=== PATIENT | male | born 1950 | race Caucasian/White ===

== ENCOUNTER 2022-12-02 23:56 | Outpatient (RCR) | payer MEDICARE, SELFPAY | END 2022-12-28 23:59 | disposition home or self-care (01) | LOC: MM 23:56 | PROVIDERS: PCP Family Medicine; Visit Provider Internal Medicine | DX: Z51.81 Encounter for therapeutic drug level monitoring (principal); Z79.01 Long term (current) use of anticoagulants; I48.91 Unspecified atrial fibrillation ==

== ENCOUNTER 2023-01-03 10:53 | Outpatient (RCR) | payer MEDICARE, SELFPAY | END 2023-01-28 16:57 | disposition home or self-care (01) | LOC: MM 10:53 | PROVIDERS: PCP Internal Medicine; Visit Provider Internal Medicine | DX: Z51.81 Encounter for therapeutic drug level monitoring (principal); Z79.01 Long term (current) use of anticoagulants; I48.91 Unspecified atrial fibrillation | CPT/HCPCS: 85610; G0463 ==

== ENCOUNTER 2023-01-29 09:17 | Outpatient (RCR) | payer MEDICARE, SELFPAY | END 2023-02-28 17:32 | disposition home or self-care (01) | LOC: MM 09:17 | PROVIDERS: Visit Provider Internal Medicine | DX: Z51.81 Encounter for therapeutic drug level monitoring (principal); Z79.01 Long term (current) use of anticoagulants; I48.91 Unspecified atrial fibrillation | CPT/HCPCS: 85610; G0463 ==

== ENCOUNTER 2023-03-01 08:51 | Outpatient (RCR) | payer MEDICARE, SELFPAY | END 2023-03-29 16:49 | disposition home or self-care (01) | LOC: MM 08:51 | PROVIDERS: Visit Provider Internal Medicine | DX: Z51.81 Encounter for therapeutic drug level monitoring (principal); Z79.01 Long term (current) use of anticoagulants; I48.91 Unspecified atrial fibrillation ==

== ENCOUNTER 2023-03-20 11:34 | Outpatient (OUT) | payer MEDICARE, SELFPAY ==
[2023-03-20 12:17] LABS: Basophils Absolute Auto 0.1 10^3/uL (0.0-0.1); Basophils Percent Auto 0.8 % (0.2-2.0); Eosinophils Absolute Auto 0.2 10^3/uL (0.0-0.7); Eosinophils Percent Auto 1.9 % (0.9-7.0); Hematocrit 46.4 % (42.0-54.0); Immature Granulocytes Abs Auto 0.04 10^3/uL (0.00-0.03); Immature Granulocytes Pct Auto 0.5 % (0.0-0.5); Lymphocytes Absolute Auto 1.7 10^3/uL (1.2-3.8); Lymphocytes Percent Auto 21.3 % (20.5-60.0); Mean Corpuscular HGB Conc 32.3 g/dL (29.9-35.2); Mean Corpuscular Hemoglobin 28.8 pg (25.9-34.0); Mean Corpuscular Volume 89.1 fL (80.0-94.0); Mean Platelet Volume 10.3 fL (9.5-13.5); Monocytes Absolute Auto 0.6 10^3/uL (0.3-0.8); Monocytes Percent Auto 7.3 % (1.7-12.0); Neutrophils Absolute Auto 5.4 10^3/uL (1.4-6.5); Neutrophils Percent Auto 68.2 % (43.0-75.0); Platelet Count 233 10^3/uL (150-450); Red Blood Count 5.21 10^6/uL (4.70-6.10); Red Cell Distribution Width 13.7 % (11.0-15.0); White Blood Count 7.8 10^3/uL (4.0-11.0)
[2023-03-20 12:34] LABS: Alanine Aminotransferase 34 U/L (16-63); Albumin Globulin Ratio 0.9; Albumin Level 3.2 g/dL (3.4-5.0); Alkaline Phosphatase 110 U/L (46-116); Anion Gap 11.2; Aspartate Amino Transferase 26 U/L (15-37); BUN Creatinine Ratio 13.9; Bilirubin Total 1.5 mg/dL (0.2-1.0); Carbon Dioxide 27.1 mmol/L (21.0-32.0); Chloride 103 mmol/L (98-107); Chol HDL Ratio 2.6; Cholesterol 104 mg/dL (<=200); Estimated GFR (African America >60 (>=60); Estimated GFR (Non-African Ame >60 (>=60); Globulin 3.6 g/dL; Glucose 102 mg/dL (74-106); HDL Cholesterol 40 mg/dL (40-60); LDL Cholesterol Calculated 41.2 mg/dL; Potassium 4.3 mmol/L (3.5-5.1); Sodium 137 mmol/L (136-145); Total Protein 6.8 g/dL (6.4-8.2); Triglycerides 114 mg/dL (<=150); VLDL CHOLESTEROL 22.8 mg/dL
== END 2023-03-20 11:35 | disposition home or self-care (01) ==
LOC: LAB 11:38
PROVIDERS: PCP Nurse Practitioner Family; Visit Provider Nurse Practitioner Family
DX: I48.91 Unspecified atrial fibrillation (principal); I10 Essential (primary) hypertension
CPT/HCPCS: 36415; 80053; 80061; 85025

== ENCOUNTER 2023-04-01 02:43 | Outpatient (RCR) | payer MEDICARE, SELFPAY | END 2023-04-30 17:41 | disposition home or self-care (01) | LOC: MM 02:43 | PROVIDERS: PCP Nurse Practitioner Family; Visit Provider Internal Medicine | DX: Z51.81 Encounter for therapeutic drug level monitoring (principal); Z79.01 Long term (current) use of anticoagulants; I48.91 Unspecified atrial fibrillation | CPT/HCPCS: 85610; G0463 ==

== ENCOUNTER 2023-05-01 00:39 | Outpatient (RCR) | payer MEDICARE, SELFPAY | END 2023-05-30 16:48 | disposition home or self-care (01) | LOC: MM 00:39 | PROVIDERS: PCP Nurse Practitioner Family; Visit Provider Internal Medicine | DX: Z51.81 Encounter for therapeutic drug level monitoring (principal); Z79.01 Long term (current) use of anticoagulants; I48.91 Unspecified atrial fibrillation | CPT/HCPCS: 85610; G0463 ==

== ENCOUNTER 2023-05-31 09:31 | Outpatient (RCR) | payer MEDICARE, SELFPAY | END 2023-06-28 15:18 | disposition home or self-care (01) | LOC: MM 09:31 | PROVIDERS: PCP Nurse Practitioner Family; Visit Provider Internal Medicine | DX: Z51.81 Encounter for therapeutic drug level monitoring (principal); Z79.01 Long term (current) use of anticoagulants; I48.91 Unspecified atrial fibrillation | CPT/HCPCS: 85610; G0463 ==

== ENCOUNTER 2023-07-01 01:27 | Outpatient (RCR) | payer MEDICARE, SELFPAY | END 2023-07-31 17:04 | disposition home or self-care (01) | LOC: MM 01:27 | PROVIDERS: PCP Nurse Practitioner Family; Visit Provider Internal Medicine | DX: Z51.81 Encounter for therapeutic drug level monitoring (principal); Z79.01 Long term (current) use of anticoagulants; I48.91 Unspecified atrial fibrillation ==

== ENCOUNTER 2023-08-01 01:40 | Outpatient (RCR) | payer MEDICARE, SELFPAY | END 2023-08-29 17:23 | disposition home or self-care (01) | LOC: MM 01:40 | PROVIDERS: PCP Nurse Practitioner Family; Visit Provider Internal Medicine | DX: Z51.81 Encounter for therapeutic drug level monitoring (principal); Z79.01 Long term (current) use of anticoagulants; I48.91 Unspecified atrial fibrillation | CPT/HCPCS: 85610; G0463 ==

== ENCOUNTER 2023-08-30 03:29 | Outpatient (RCR) | payer MEDICARE, SELFPAY | END 2023-09-27 14:10 | disposition home or self-care (01) | LOC: MM 03:29 | PROVIDERS: PCP Nurse Practitioner Family; Visit Provider Internal Medicine | DX: Z51.81 Encounter for therapeutic drug level monitoring (principal); Z79.01 Long term (current) use of anticoagulants; I48.91 Unspecified atrial fibrillation | CPT/HCPCS: 85610; G0463 ==

== ENCOUNTER 2023-09-30 00:24 | Outpatient (RCR) | payer MEDICARE, SELFPAY | END 2023-10-29 18:01 | disposition home or self-care (01) | LOC: MM 00:24 | PROVIDERS: PCP Nurse Practitioner Family; Visit Provider Internal Medicine | DX: Z51.81 Encounter for therapeutic drug level monitoring (principal); Z79.01 Long term (current) use of anticoagulants; I48.91 Unspecified atrial fibrillation | CPT/HCPCS: 85610; G0463 ==

== ENCOUNTER 2023-10-30 04:38 | Outpatient (RCR) | payer MEDICARE, SELFPAY | END 2023-11-29 11:55 | disposition home or self-care (01) | LOC: MM 04:38 | PROVIDERS: PCP Nurse Practitioner Family; Visit Provider Internal Medicine | DX: Z51.81 Encounter for therapeutic drug level monitoring (principal); Z79.01 Long term (current) use of anticoagulants; I48.91 Unspecified atrial fibrillation ==

== ENCOUNTER 2023-11-12 13:38 | Outpatient (OUT) | payer MEDICARE, SELFPAY ==
--- NOTE | 2023-11-12 14:00 | CA_ITS ---
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 DESCRIPTION: COMPLETE ECHOCARDIOGRAM Real-time transthoracic echocardiography with 2D, M-mode, spectral and color flow Doppler performed. QUALITY: Technical quality was fair. 68 , 295#, BSA 2.41 m2, BP 130/72 LEFT VENTRICLE: Normal chamber size. Mild concentric left ventricular hypertrophy. Normal systolic function. LV EF: Normal left ventricular ejection fraction, (55%). DIASTOLIC: Not adequately assessed due to heart rhythm. ATRIAL SEPTUM: LEFT ATRIUM: Moderate dilatation. RIGHT ATRIUM: Moderate dilatation. RIGHT VENTRICLE: Normal chamber size. Normal right ventricular systolic function. TRICUSPID VALVE: Normal mobility and thickness. No stenosis with trivial regurgitation. No evidence of pulmonary hypertension. RVSP 29 mmHg MITRAL VALVE: Mildly thickened with normal mobility. No evidence of mitral valve stenosis. There is no mitral annular calcification. No mitral regurgitation. AORTIC VALVE: Normal trileaflet appearance. No visible sclerosis. Normal leaflet mobility. No evidence of aortic valve stenosis. No aortic regurgitation. AORTIC ROOT: The aortic root is moderately dilated, measuring 4.4 cm. The ascending aortic is mildly dilated measuring 3.7 cm. PULMONIC VALVE: Not well visualized. No stenosis. No regurgitation. PERICARDIUM: No evidence of pericardial effusion. IVC: Collapses with inspirations. IVC is normal in size. PLEURA: CONCLUSION: 1. Mild concentric left ventricular hypertrophy with normal systolic function. LVEF is 55%. 2. Normal right ventricular size and systolic function. 3. No significant valvular dysfunction. 4. Moderate biatrial dilatation. 5. Normal right sided pressures. 6. The aortic root is moderately dilated, measuring 4.4 cm. The ascending aortic is mildly dilated measuring 3.7 cm. Adult Echocardiography Procedure Report Left Ventricle LVEDD (3.7 - 5.6 cm): 5.36 cm, 5.20 cm LVESD (2.2 - 4.0 cm): 4.12 cm LVIVS thickness (0.6 - 1.2 cm): 1.01 cm, 1.09 cm LVPW thickness (0.5 - 1.0 cm): 1.31 cm LVOT Max Gradient: 3.34 mm[Hg] LVOT Area (cm2): 0.91 m/s Peak Velocity (LVOT): 0.91 m/s Mean Velocity (LVOT): 0.56 m/s LVOT Diameter 2.41 cm Left Atrium LA Volume Index (2D A2C): 44.62 ml/m2 Left Atrium Systolic Dimension: 3.93 cm Mitral Valve Mitral Valve E-Wave Peak Velocity: 0.55 m/s Right Ventricle Aorta AO Root Diam: 4.17 cm Ascending Ao Diam: 3.68 cm Aortic Valve AoV Area (Peak Fahad): 4.56 cm2, 4.56 cm2 AoV Area (VTI): 3.74 cm2, 3.74 cm2 Peak Velocity(Antegrade Flow): 0.91 m/s Peak Gradient(Antegrade Flow): 3.32 mm[Hg] Mean Velocity(Antegrade Flow): 0.65 m/s Mean Gradient(Antegrade Flow): 1.87 mm[Hg] Velocity Time Integral: 20.91 cm Tricuspid Valve Peak Velocity (Regurgitant Flow): 2.54 m/s Pulmonic Valve Mean Gradient: 1.86 mm[Hg] Mean Velocity: 0.62 m/s Peak Velocity: 0.97 m/s, 0.82 m/s Peak Gradient: 2.71 mm[Hg], 3.73 mm[Hg] Right Atrium Right Atrium Systolic Pressure: 87.97 ml, 87.97 ml Dictated by: Juan Bauman M.D. on 11/14/2023 at 08:32 Approved by: Juan Bauman M.D. on 11/14/2023 at 08:43
== END 2023-11-12 13:39 | disposition home or self-care (01) ==
LOC: CARD 13:39
PROVIDERS: PCP Nurse Practitioner Family; Visit Provider Nurse Practitioner Family
DX: R94.31 Abnormal electrocardiogram [ECG] [EKG] (principal); I48.0 Paroxysmal atrial fibrillation
CPT/HCPCS: 93306

== ENCOUNTER 2023-12-02 00:31 | Outpatient (RCR) | payer MEDICARE, SELFPAY | END 2023-12-27 10:22 | disposition home or self-care (01) | LOC: MM 00:31 | PROVIDERS: PCP Nurse Practitioner Family; Visit Provider Internal Medicine | DX: Z51.81 Encounter for therapeutic drug level monitoring (principal); Z79.01 Long term (current) use of anticoagulants; I48.91 Unspecified atrial fibrillation | CPT/HCPCS: 85610; G0463 ==

== ENCOUNTER 2023-12-30 00:56 | Outpatient (RCR) | payer MEDICARE, SELFPAY | END 2024-01-29 09:51 | disposition home or self-care (01) | LOC: MM 00:56 | PROVIDERS: PCP Nurse Practitioner Family; Visit Provider Internal Medicine | DX: Z51.81 Encounter for therapeutic drug level monitoring (principal); Z79.01 Long term (current) use of anticoagulants; I48.91 Unspecified atrial fibrillation | CPT/HCPCS: 85610; G0463 ==

== ENCOUNTER 2024-01-30 00:19 | Outpatient (RCR) | payer MEDICARE, SELFPAY | END 2024-02-28 09:50 | disposition home or self-care (01) | LOC: MM 00:19 | PROVIDERS: PCP Nurse Practitioner Family; Visit Provider Internal Medicine | DX: Z51.81 Encounter for therapeutic drug level monitoring (principal); Z79.01 Long term (current) use of anticoagulants; I48.91 Unspecified atrial fibrillation | CPT/HCPCS: 85610; G0463 ==

== ENCOUNTER 2024-03-02 01:27 | Outpatient (RCR) | payer MEDICARE, SELFPAY | END 2024-03-30 23:54 | disposition home or self-care (01) | LOC: MM 01:27 | PROVIDERS: PCP Nurse Practitioner Family; Visit Provider Internal Medicine | DX: Z51.81 Encounter for therapeutic drug level monitoring (principal); Z79.01 Long term (current) use of anticoagulants; I48.91 Unspecified atrial fibrillation | CPT/HCPCS: 85610; G0463 ==

== ENCOUNTER 2024-03-31 02:42 | Outpatient (RCR) | payer MEDICARE, SELFPAY | END 2024-04-30 23:43 | disposition home or self-care (01) | LOC: MM 02:42 | PROVIDERS: PCP Nurse Practitioner Family; Visit Provider Internal Medicine | DX: Z51.81 Encounter for therapeutic drug level monitoring (principal); Z79.01 Long term (current) use of anticoagulants; I48.91 Unspecified atrial fibrillation ==

== ENCOUNTER 2024-05-01 11:59 | Outpatient (RCR) | payer MEDICARE, SELFPAY | END 2024-05-30 23:59 | disposition home or self-care (01) | LOC: MM 11:59 | PROVIDERS: PCP Nurse Practitioner Family; Visit Provider Internal Medicine | DX: Z51.81 Encounter for therapeutic drug level monitoring (principal); Z79.01 Long term (current) use of anticoagulants; I48.91 Unspecified atrial fibrillation | CPT/HCPCS: 85610; G0463 ==

== ENCOUNTER 2024-06-01 04:15 | Outpatient (RCR) | payer MEDICARE, SELFPAY | END 2024-06-30 09:30 | disposition home or self-care (01) | LOC: MM 04:15 | PROVIDERS: PCP Nurse Practitioner Family; Visit Provider Internal Medicine | DX: Z51.81 Encounter for therapeutic drug level monitoring (principal); Z79.01 Long term (current) use of anticoagulants; I48.91 Unspecified atrial fibrillation | CPT/HCPCS: 85610; G0463 ==

== ENCOUNTER 2024-06-30 08:00 | Outpatient (OUT) | payer MEDICARE, SELFPAY ==
--- OUTSIDE RECORDS SUMMARY | 2024-06-30 08:05 | XMS_ITS | CCD ---
Author Organization [facility] CliniSynv Care Team Providers Care Oracle Business Intelligence Developer Name Role Phone UNKNOWN, PROVIDER Unavailable Unavailable UNKNOWN, PROVIDER Unavailable Unavailable HOUSE, MARINO Unavailable Unavailable HOUSE, MARINO Unavailable Unavailable House, Marino Primary Care Unavailable Evelina Sloan Attending Unavailable Oren Garcia Admitting Unavailab Pepe Chung Consulting Unavailable FAWWAD, LEIGH H Attending Unavailable FAWWAD, LEIGH H Admitting Unavailable HOUSE, DR JUSTIN Primary Care Unavailable FAWWAD, LEIGH H Attending Unavailable FAWWAD, LEIGH H Admitting Unavailable HOUSE, DR JUSTIN Primary Care Unavailable FAWWAD, LEIGH H Admitting Unavailable HOUSE, DR JUSTIN Primary Care Unavailable FAWWAD, LEIGH H Consulting Unavailable FAWWAD, LEIGH H Attending Unavailable FAWWAD, LEIGH H Attending Unavailable FAWWAD, LEIGH H Admitting Unavailable HOUSE, DR JUSTIN Primary Care Unavailable FAWWAD, LEIGH H Attending Unavailable FAWWAD, LEIGH H Admitting Unavailable HOUSE, DR JUSTIN Primary Care Unavailable FAWWAD, LEIGH H Attending Unavailable FAWWAD, LEIGH H Admitting Unavailable HOUSE, DR JUSTIN Primary Care Unavailable FAWWAD, LEIGH H Attending Unavailable FAWWAD, LEIGH H Admitting Unavailable HOUSE, DR JUSTIN Primary Care Unavailable FAWWAD, LEIGH H Attending Unavailable FAWWAD, LEIGH H Admitting Unavailable HOUSE, DR JUSTIN Primary Care Unavailable RHONDA ROSENBAUM Attending Unavailable RHONDA ROSENBAUM Admitting Unavailable RHONDA ROSENBAUM Consulting Unavailable HOUSE, DR JUSTIN Primary Care Unavailable HOUSE, DR JUSTIN Consulting Unavailable HOUSE, DR JUSTIN Attending Unavailable HOUSE, DR JUSTIN Admitting Unavailable HOUSE, DR JUSTIN Primary Care Unavailable [facility], DR KEVEN Hart Consulting Unavailable RHONDA ROSENBAUM Attending Unavailable RHONDA ROSENBAUM Admitting Unavailable HOUSE, DR JUSTIN Primary Care Unavailable RHONDA ROSENBAUM Consulting Unavailable RHONDA ROSENBAUM Attending Unavailable RHONDA ROSENBAUM Admitting Unavailable HOUSE, DR JUSTIN Primary Care Unavailable FAWWATammy, LEIGH H Admitting Unavailable HOUSE, DR JUSTIN Primary Care Unavailable FAWWAD, LEIGH H Attending Unavailable FAWWAD, LEIGH H Admitting Unavailable HOUSE, DR JUSTIN Primary Care Unavailable FAWWAD, LEIGH H Attending Unavailable FAWWAD, LEIGH H Attending Unavailable FAWWAD, LEIGH H Admitting Unavailable HOUSE, DR JUSTIN Primary Care Unavailable Rachael Guerrero Unavailable RHONDA ROSENBAUM Attending Unavailable RHONDA ROSENBAUM Attending Unavailable Allergies Allergy Classification Reported Allergen(s) Allergy Type Date of Onset Reaction(s) Facility (1 source) Latex; Translations: [latex] Propensity to adverse reactions (disorder) 6 AOF [facility] Repository (2 sources) Lisinopril; Translations: [LISINOPRIL] Drug Allergy 2 [facility] Repository (3 sources) Lisinopril Drug Allergy anaphylaxis Itugo Other Medications Current Medications Medication Drug Class(es) Dates Sig (Normalized) Sig (Original) [id number] 200 actuat albuterol 0.09 mg/actuat metered dose inhaler (2 sources) beta2-Adrenergic Agonist Start: 03-03-2024 take 1 puff(s) by inhalation every four to six hours Albuterol Sulfate Active 2 PUFF INHALATION EVERY 4-6 HOURS 6.7 March 03, 2024 1:18pm Start: 09-10-2023 End: 03-03-2024 take 1 puff(s) by inhalation every four to six hours Albuterol Sulfate Discontinued 2 PUFF INHALATION EVERY 4-6 HOURS 6.7 September 10, 2023 12:00am March 03, 2024 1:18pm aspirin 81 mg oral tablet (4 sources) Platelet Aggregation Inhibitor, Nonsteroidal Anti-inflammatory Drug Start: 10-29-2021 take 81 mg by mouth once daily Aspirin Active 81 MG PO Daily October 29, 2021 12:00am take 1 tablet by fran th every twenty-four hours Aspirin 81 81 MG 1 tablet Orally Once a day Active doxazosin 4 mg oral tablet (4 sources) alpha-Adrenergic Bill Start: 10-26-2021 take 4 mg by mouth once daily Doxazosin Active 4 MG PO Daily October 26, 2021 12:00am furosemide 20 mg oral tablet (5 sources) Loop Diuretic Start: 08-14-2023 take 40 mg by mouth once daily Furosemide Active 40 MG PO Daily August 14, 2023 11:49am Start: 10-26-2021 End: 08-14-2023 take 20 mg by mouth once daily Furosemide Discontinued 20 MG PO Daily October 26, 2021 12:00am August 14, 2023 11:51am take 1 tablet by fran every twenty-four hours Furosemide 40 MG 1 tablet Orally Once a day Active irbesartan 75 mg oral tablet (4 sources) Angiotensin 2 Receptor Bill Start: 11-15-2022 take 75 mg by mouth once daily Irbesartan Active 75 MG PO Daily November 15, 2022 12:00am Magnesium (3 sources) Magnesium 400 MG as directed Orally Active magnesium oxide 400 mg oral tablet (1 source) Start: 08-14-2023 take 400 mg by mouth once daily Magnesium Oxide Active 400 MG PO Daily August 14, 2023 1:00am mupirocin 0.02 mg/mg topical ointment (1 source) RNA Synthetase Inhibitor Antibacterial Start: 09-10-2023 Mupirocin Active 1 APPLIC TOPICAL Twice daily 19 01September 10, 2023 12:00am omeprazole 20 mg delayed release oral capsule (5 sources) Proton Pump Inhibitor Start: 08-14-2023 take 20 mg by mouth once daily Omeprazole Magnesium Active 20 MG PO Daily August 14, 2023 11:50am Start: 10-29-2021 End: 08-14-2023 take 20 mg by mouth twice daily Omeprazole Magnesium Discontinued 20 MG PO Twice daily October 29, 2021 12:00am August 14, 2023 11:51am take 1 capsule by mo [facility] once daily Omeprazole 20 MG 1 capsule 30 minutes before morning meal Orally Once a day Active warfarin sodium 2.5 mg oral tablet (5 sources) Vitamin K Antagonist Start: 10-30-2021 take 2.5 mg by mouth once daily Warfarin Active 2.5 MG PO Daily October 30, 2021 12:00am CONFIRMED WITH RESHMA WRIGHT 10/30/21 Start: 10-29-2021 End: 10-30-2021 Warfarin Discontinued 5 MG P O Daily October 29, 2021 12:00am October 30, 2021 10:07am 1/2 or 1 tablet as directed Completed/Discontinued Medications Medication Drug Class(es) Dates Sig (Normalized) Sig (Original) amiodarone hydrochloride 200 mg oral tablet (1 source) Antiarrhythmic Start: 10-26-2021 End: 08-14-2023 Amiodarone Discontinued 100 MG PO Every 48 hours October 26, 2021 12:00am August 14, 2023 11:50am amoxicillin 875 mg / clavulanate 125 mg oral tablet (1 source) Penicillin-class Antibacterial Start: 09-10-2023 End: 03-20-2024 take 1 tablet by mouth twice daily Amoxicillin-Pot Clavulanate Discontinued 1 TAB PO Twice daily 19 04September 10, 2023 12:00am March 20, 2024 10:36am atorvastatin 40 mg oral tablet (5 sources) HMG-CoA Reductase Inhibitor Start: 11-15-2022 End: 08-14-2023 Atorvastatin Discontinued MG TABLET November 15, 2022 12:00am August 14, 2023 11:50am Start: 10-26-2021 take 40 mg by mouth once daily Atorvastatin Active 40 MG PO Daily October 26, 2021 12:00am famotidine 40 mg oral tablet (1 source) Histamine-2 Receptor Antagonist Start: 11-15-2022 End: 08-14-2023 take 40 mg by mouth once daily Famotidine Discontinued 40 MG PO Daily November 15, 2022 12:00am August 14, 2023 11:50am lisinopril 10 mg oral tablet (1 source) Angiotensin Converting Enzyme Inhibitor Start: 10-26-2021 End: 10-30-2021 take 10 mg by mouth once daily Lisinopril Discontinued 10 MG PO Daily October 26, 2021 12:00am October 30, 2021 1:36pm metoprolol tartrate 25 mg oral tablet (1 source) beta-Adrenergic Bill Start: 10-26-2021 End: 08-14-2023 take 12.5 mg by mouth twice daily Metoprolol Tartrate Discontinued 12.5 MG PO Twice daily October 26, 2021 12:00am August 14, 2023 11:50am predniSONE 50 mg oral tablet (1 source) Start: 11-15-2022 End: 08-14-2023 take 50 mg by mouth once daily Prednisone Discontinued 50 MG PO Daily 01 04November 15, 2022 12:00am August 14, 2023 11:50am Problems Active Problems Problem Classification Problem Date Documented Date Episodic/Chronic Abdominal pain (4 sources) Unspecified abdominal pain; Translations: [UNSPECIFIED ABDOMINAL PAIN] Onset: 10-02-2022 Episodic Asthma (2 sources) Asthma; Translations: [Unspecified asthma, uncomplicated] 08-14-2023 Chronic Cardiac dysrhythmias (19 sources) Unspecified atrial fibrillation; Translations: [Paroxysmal atrial fibrillation] Onset: 11-22-2017 Chronic Chronic obstructive pulmonary disease and bronchiectasis (2 sources) Chronic obstructive lung disease; Translations: [Chronic obstructive pulmonary disease, unspecified] 08-14-2023 Chronic Coronary atherosclerosis and other heart disease (1 source) Atherosclerotic heart disease of [place] coronary artery without angina pectoris; Translations: [ATHSCL HEART DISEASE OF [place] CORONARY ARTERY W/O ANG PCTRS] Onset: 11-22-2017 Chronic Coronary atherosclerosis and other heart disease (2 sources) Presence of aortocoronary bypass graft; Translations: [PRESENCE OF AORTOCORONARY BYPASS GRAFT] Onset: 11-22-2017 Episodic Disorders of lipid metabolism (2 sources) Hypercholesterolemia; Translations: [Pure hypercholesterolemia, unspecified] 08-14-2023 Chronic Esophageal disorders (7 sources) Gastro-esophageal reflux disease without esophagitis; Translations: [Gastroesophageal reflux disease without esophagitis] Onset: 11-22-2017 Chronic Essential hypertension (7 sources) Essential (primary) hypertension; Translations: [Essential hypertension] Onset: 11-22-2017 Chronic Immunizations and screening for infectious disease (1 source) Encounter for immunization Episodic Other aftercare (2 sources) emt intermediate (current) use of anticoagulants; 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] Onset: 11-22-2017 Episodic Other aftercare (5 sources) Encounter for therapeutic drug level monitoring; Translations: [ENC THERAPEUTC DRUG LEVL MONITORING] Onset: 10-27-2022 Episodic Other and ill-defined heart disease (1 source) Heart disease; Translations: [Heart disease, unspecified] 08-14-2023 Chronic Other and ill-defined heart disease (1 source) Heart disease, unspecified; Translations: [Heart disease, unspecified] 03-20-2024 Chronic Other injuries and conditions due to external causes (1 source) Angioedema; Translations: [Angioneurotic edema, initial encounter] 06-12-2023 Episodic Other injuries and conditions due to external causes (1 source) Angioedema of tongue; Translations: [Angioneurotic edema, initial encounter] 06-12-2023 Episodic Other lower respiratory disease (1 source) Respiratory obstruction; Translations: [Other specified respiratory disorders] 06-12-2023 Episodic Other screening for suspected conditions (not mental disorders or infectious disease) (2 sources) Patient encounter status; Translations: [Encounter for screening for malignant neoplasm of prostate] 03-20-2024 Episodic Other skin disorders (1 source) Eruption; Translations: [Rash and other nonspecific skin eruption] 09-10-2023 Episodic Other upper respiratory infections (1 source) Maxillary sinusitis; Translations: [Chronic maxillary sinusitis] 09-10-2023 Chronic Spondylosis; intervertebral disc disorders; other back problems (1 source) Backache; Translations: [Dorsalgia, unspecified] 09-11-2023 Episodic Unclassified (2 sources) Unknown / UNK(Unknown) Onset: 11-22-2017 Unclassified (1 source) T78.3XXA - Angioneurotic edema, initial encounter; Translations: [T78.3XXA - Angioneurotic edema, initial encounter] Onset: 10-26-2021 Unclassified (2 sources) Other persistent atrial fibrillation; Translations: [Other persistent atrial fibrillation] Onset: 03-26-2024 Past or Other Problems Problem Classification Problem Date Documented Date Episodic/Chronic Other aftercare (1 source) skilled nursing (current) use of aspirin; Translations: [NURSING HOME (CURRENT) USE OF ASPIRIN] Onset: 11-22-2017 Episodic Other lower respiratory disease (1 source) Other specified respiratory disorders; Translations: [J98.8 - Other specified respiratory disorders] Onset: 10-26-2021 Episodic Other skin disorders (1 source) Unspecified skin changes; Translations: [R23.9 - Unspecified skin changes] Onset: 10-26-2021 Episodic Residual codes; unclassified (1 source) Other specified postprocedural states; Translations: [[facility] SPECIFIED POSTPROCEDURAL STATES] Onset: 06-02-2022 Episodic Results Test Name Value Interpretation Reference Range Facility 37on 03-26-2024 37 *Increase lasix to 4 0mg twice daily for 3 days. Can take second dose around 3pm. *We will call you in 1 week to see how you are feeling. Normal [facility] Office Visiton 03-26-2024 Follow-up visit [id number] Doug Mcfarland E 1950 M Date Provider Department Center 03/26/2024 RHONDA ARROYO Family History Problem Relation Age of Onset Heart failure Mother Family Status - Relation Status Age at Mother Level of Service:30078 [place] OFFICE/OUTPATIENT ESTABLISHED MOD MDM 30 MIN Reason for Visit and Comments: Coronary Artery Disease [187] Normal [facility] Office Visiton 09-19-2023 Follow-up visit [id number] Doug Mcfarland E 1950 M Date Provider Department Center 09/19/2023 RHONDA ARROYO Family History Problem Relation Age of Onset Heart failure Mother Family Status - Relation Status Age at Mother Level of Service:29444 [place] OFFICE/OUTPATIENT ESTABLISHED MOD MDM 30 MIN Reason for Visit and Comments: Coronary Artery Disease [187] Atrial Fibrillation [80] Normal [facility] CT ABD/PELVIS WO CONon 10-02 CT ABD/PELVIS WO CON EXAMINATION: CT ABD/PELVIS WO CON HISTORY: Right flank pain for 6 months COMPARISON: CT abdomen pelvis 10/22/2019 TECHNIQUE: Axial, Coronal, and Sagittal images were obtained without and/or with IV contrast as indicated by examination type. Dose reduction techniques were achieved by using automated exposure control and/or adjustment of mA and/or kV according to patient size and/or use of iterative reconstruction technique. FINDINGS: LUNG BASES: No visible pulmonary or pleural disease. LIVER: No enlargement, atrophy, suspicious density, or significant focal lesion. BILIARY: No dilatation or calcification. PANCREAS: No lesion, fluid collection, or abnormal duct dilatation. SPLEEN: No enlargement or focal lesion. ADRENALS: No mass or enlargement. KIDNEYS: No mass, obstruction, or calcification. BOWEL/MESENTERY: Numerous diverticula involving the descending and sigmoid colon without acute inflammatory changes. No visible mass, obstruction, or bowel wall thickening. AORTA/VASCULAR: No aneurysm or dissection. RETROPERITONEUM: No mass or adenopathy. LYMPH NODES: No adenopathy. URINARY BLADDER: No visible focal wall thickening, lesion, or calculus. PELVIC ORGANS: No visible mass. Pelvic organs appropriate for patient age. ABDOMINAL WALL: Lower right anterior abdominal wall scarring, likely from prior surgery. No hernia or mass. BONES: No bony lesion or fracture. OTHER: Negative. IMPRESSION: 1.No abnormal or suspicious findings to account for patient's symptoms. Electronically authenticated by: KEVEN FENTON Date: 2022-10-02 08:59 Normal [facility] ECHOCARDIO M/2D COMPLETEon 0 02-23-2022 ECHOCARDIO M/2D COMPLETE Patient: KYLER MCFARLAND Exam Date: 02/23/2022 : 1950 Gender:M Ordering : RHONDA ROSENBAUM [facility] Admission #: [id number] Family : Order #: [id number] CLICK HERE TO VIEW EXAM ECHOCARDIOGRAM REPORT PROCEDURE: CARDIO PULMONARY ECHOCARDIO M/2D COMP INDICATIONS: Paroxysmal atrial fibrillation COMPARISON: None. DESCRIPTION: COMPLETE ECHOCARDIOGRAM Real-time transthoracic echocardiography with 2D, M-mode, spectral and color flow Doppler performed. QUALITY: Technical quality was limited. LEFT VENTRICLE: Normal chamber size. Thickened septal wall. Left ventricular systolic function is at the lower limits of normal. LV EF: Lower limits of normal left ventricular ejection fraction, (50-55%). DIASTOLIC: Diastolic function is indeterminate. ATRIAL SEPTUM: LEFT ATRIUM: Mild dilatation. RIGHT ATRIUM: Mild dilatation. RIGHT VENTRICLE: Mild dilatation. Normal right ventricular systolic function. TRICUSPID VALVE: Normal mobility and thickness. No stenosis with trivial regurgitation. Mild pulmonary hypertension. RVSP is 35 mmHg MITRAL VALVE: Anterior and posterior mitral valve leaflet prolapse. No evidence of mitral valve stenosis. There is no mitral annular calcification. Trivial mitral regurgitation. AORTIC VALVE: Normal trileaflet appearance. No visible sclerosis. Normal leaflet mobility. No evidence of aortic valve stenosis. No aortic regurgitation. AORTIC ROOT: Mildly dilated. The aortic root and ascending aorta are mildly dilated both measuring 4.2 cm. PULMONIC VALVE: Normal thickness and mobility. No stenosis. No regurgitation. PERICARDIUM: No evidence of pericardial effusion. IVC: Collapses with inspirations. Normal size. PLEURA: CONCLUSION: 1. Left ventricular systolic function is at the lower limits of normal. LVEF is 50 to 55%. 2. The right ventricle is mildly dilated with normal systolic function. 3. Mild biatrial dilatation. 4. The aortic root and ascending aorta are mildly dilated, measuring 4.2 cm. 5. No significant valvular dysfunction. 6. Mildly elevated right-sided pressures. 7. No pericardial effusion. Adult Echocardiography Procedure Report Left Ventricle Left Atrium Mitral Valve Right Ventricle RV Internal Diastolic Dimension: 4.78 cm Aorta Aortic Valve Peak Velocity (Antegrade Flow): 0.89 m/s AoV Area (Peak Fahad): 2.81 cm2, 2.81 cm2 Tricuspid Valve Peak Velocity (Regurgitant Flow): 2.55 m/s, 2.59 m/s, 2.83 m/s Peak Velocity: 0.50 m/s Pulmonic Valve Mean Gradient: 1.63 mm[Hg] Mean Velocity: 0.60 m/s Peak Velocity: 0.82 m/s, 0.82 m/s Peak Gradient: 2.66 mm[Hg], 2.66 mm[Hg] Right Atrium Dictated by: Juan Bauman M.D. on 02/23/2022 at 15:40 Approved by: Juan Bauman M.D. on 02/23/2022 at 15:46 Normal [facility] FREE T4on 02-13-2022 Free T4 [Mass/Vol] 1.05 ng/dL Normal 0.76-1.46 [facility] Comment on above: Performed By: #### FT4 #### [facility] [address] [place] [address] Dr. Vin Rush PROF CHEM 8 (BAS METB)on Anion gap [Moles/Vol] 11.9 mmol/L Normal [facility] Comment on above: Performed By: #### BMP, TSH #### [facility] [address] [place] [address] Dr. Vin Rush Calcium [Mass/Vol] 8.5 mg/dL Normal 8.5-10.1 [facility] Comment on above: Performed By: #### BMP, TSH #### [facility] [address] [address] [address] Vin Rush Chloride [Moles/Vol] 104 mmol/L Normal 98-107 [facility] Comment on above: Performed By: #### BMP, TSH #### [facility] [address] [place] [address] Dr. Vin Rush CO2 [Moles/Vol] 28.0 mmol/L Normal 21.0-32.0 [facility] Comment on above: Performed By: #### BMP, TSH #### [facility] [address] [address] [address] Vin Rush Creatinine [Mass/Vol] 1.12 mg/dL Normal 0.70-1.30 [facility] Comment on above: Performed By: #### BMP, TSH #### [facility] [address] [place] [address] Dr. Vin Rush EGFR-AF SRI LANKAN >60 Normal >=60 [facility] Comment on above: Performed By: #### BMP, TSH #### [facility] [address] [place] [address] Dr. Vin Rush EGFR-NON AF SRI LANKAN >60 Normal >=60 [facility] Comment on above: Performed By: #### BMP, TSH #### [facility] [address] [place] [address] Dr. Vin Rush Glucose [Mass/Vol] 153 mg/dL Critically high 74-106 [facility] Comment on above: Performed By: #### BMP, TSH #### [facility] [address] [place] [address] Dr. Vin Rush Potassium [Moles/Vol] 3.9 mmol/L Normal 3.5-5.1 [facility] Comment on above: Performed By: #### BMP, TSH #### [facility] [address] [place] [address] Dr. Vin Rush Sodium [Moles/Vol] 140 mmol/L Normal 136-145 [facility] Comment on above: Performed By: #### BMP, TSH #### [facility] [address] [place] [address] Dr. Vin Rush Urea nitrogen [Mass/Vol] 16.0 mg/dL Normal 7.0-18.0 [facility] Comment on above: Performed By: #### BMP, TSH #### [facility] [address] [address] [address] Vin Rush Urea nitrogen/Creatin ine [Mass ratio] 14.3 mg/mg Normal [facility] Comment on above: Performed By: #### BMP, TSH #### [facility] [address] [address] [address] Vin Rush TSHon 02-13-2022 TSH 5.875 uIU/mL Critically high 0.358-3.74 0 [facility] Comment on above: Performed By: #### BMP, TSH #### [facility] [address] [address] [address] Vin Rush Basic Metabolic Panelon Calcium [Mass/Vol] 8.3 mg/dL Normal 8.2-10.2 [facility] Comment on above: Performed By: #### GLULS #### Point of Care testing , Chloride [Moles/Vol] 101 mmol/L Normal 95-114 [facility] Comment on above: Performed By: #### GLULS #### Point of Care testing , CO2 [Moles/Vol] 29.6 mmol/L Normal 22.0-30.0 [facility] Comment on above: Performed By: #### GLULS #### Point of Care testing , Creatinine [Mass/Vol] 1.34 mg/dL High 0.64-1.27 [facility] Comment on above: Performed By: #### GLULS #### Point of Care testing , Creatinine Clr Calc Pharmacy 69.47 [facility] Comment on above: Result Comment: PERFORMED BY: [facility] [address] [place] [address] PATHOLOGIST MILLINERY COPYIST SHONDA GANNON M.D. Performed By: #### G LULS #### Point of Care testing , Estimated GFR ( Peri > 60 Normal [facility] Comment on above: Result Comment: GFR estimated reference range: According to KDOQI guidelines, <60 ml/min/1.73m2 is sufficient to diagnose a patient with chronic kidney disease. Performed By: #### G LULS #### Point of Care testing , Estimated GFR (Non- Am 52 Normal [facility] Comment on above: Performed By: #### GLULS #### Point of Care testing , Glucose [Mass/Vol] 83 mg/dL Normal 70-100 [facility] Comment on above: Result Comment: Random Glucose Reference Range is dependent on time and content of last meal. Glucose of more than 200 mg/dL in a nonstressed, ambulatory subject supports the diagnosis of Diabetes Mellitus. ADA recommended reference range Performed By: #### G LULS #### Point of Care testing , Potassium [Moles/Vol] 4.0 mmol/L Normal 3.5-5.1 [facility] Comment on above: Performed By: #### GLULS #### Point of Care testing , Sodium [Moles/Vol] 138 mmol/L Normal 136-146 [facility] Comment on above: Performed By: #### GLULS #### Point of Care testing , Urea nitrogen [Mass/Vol] 23 mg/dL Normal 9-23 [facility] Comment on above: Performed By: #### GLULS #### Point of Care testing , Complete Blood Count Auto Di ffon 10-30-2021 Erythrocyte distribution width (RBC) [Ratio] 14.5 % Normal 12.0-14.8 [facility] Comment on above: Performed By: #### GLULS #### Point of Care testing , Hematocrit (Bld) [Volume fraction] 42.3 % Normal 38.8-50.0 [facility] Comment on above: Performed By: #### GLULS #### Point of Care testing , Hemoglobin (Bld) [Mass/Vol] 14.1 g/dL Normal 13.0-17.0 [facility] Comment on above: Performed By: #### GLULS #### Point of Care testing , MCH (RBC) [Entitic mass] 29.0 pg Normal 27.5-35.2 [facility] Comment on above: Performed By: #### GLULS #### Point of Care testing , MCV (RBC) [Entitic vol] 87.0 fL Normal 83.5-101 [facility] Comment on above: Performed By: #### GLULS #### Point of Care testing , Mean Corpuscular HGB Conc 33.3 g/dL Normal 32.5-35.6 [facility] Comment on above: Performed By: #### GLULS #### Point of Care testing , Nucleated RBC/100 WBC (Bld) [Ratio] 0.4 % Normal 0-0.5 [facility] Comment on above: Result Comment: PERFORMED BY: [facility] [address] [place] [address] PATHOLOGIST MILLINERY COPYIST SHONDA GANNON M.D. Performed By: #### G LULS #### Point of Care testing , Platelet mean volume (Bld) [Entitic vol] 8.4 fL Normal 6.6-10.1 [facility] Comment on above: Performed By: #### GLULS #### Point of Care testing , Platelets (Bld) [#/Vol] 211 10*3/uL Normal 150-450 [facility] Comment on above: Performed By: #### GLULS #### Point of Care testing , RBC (Bld) [#/Vol] 4.86 10*6/uL Normal 3.90-5.60 [facility] Comment on above: Performed By: #### GLULS #### Point of Care testing , WBC (Bld) [#/Vol] 9.7 10*3/uL Normal 4.5-11.0 [facility] Comment on above: Performed By: #### GLULS #### Point of Care testing , Diff and CBCon 10-30-2021 Eosinophils/100 WBC (Bld) 2 % Normal 1-3 [facility] Comment on above: Performed By: #### GLULS #### Point of Care testing , Lymphocytes/100 WBC (Bld) 23 % Normal 18-42 [facility] Comment on above: Performed By: #### GLULS #### Point of Care testing , Metamyelocytes 3 % High 0-0 [facility] Comment on above: Performed By: #### GLULS #### Point of Care testing , Monocytes/100 WBC (Bld) 9 % Normal 2-11 [facility] Comment on above: Performed By: #### GLULS #### Point of Care testing , Platelet Estimate Normal Normal Normal [facility] Comment on above: Performed By: #### GLULS #### Point of Care testing , Platelet Morphology Normal Normal Normal [facility] Comment on above: Result Comment: PERFORMED BY: [address] [place] [address] PATHOLOGIST MILLINERY COPYIST SHONDA GANNON M.D. Performed By: #### G LULS #### Point of Care testing , RBC morphology finding Nom (Bld) Normal Normal [facility] Comment on above: Performed By: #### GLULS #### Point of Care testing , Segmented neutrophils/100 WBC (Bld) 63 % Normal 50-70 [facility] Comment on above: Performed By: #### GLULS #### Point of Care testing , Prothrombin Time INRon 10-30 INR Coag (PPP) [Relative time] 1.4 {INR} Normal [facility] Comment on above: Result Comment: INR Therapeutic Range A) Pre- and Peroperative OAT started two weeks before surgery. NOT HIP SURGERY: 1.5 - 2.5 HIP SURGERY: 2 - 3 B) Primary and secondary prevention of venous THROMBOSIS: 2 - 3 C) Active venous thrombosis, pulmonary embolism and prevention of recurrent venous thrombosis: 2 - 3 D) Prevention of arterial thromboembolism including patients with mechanical heart valves: 3 - 4.5 PERFORMED BY: [facility] [address] [place] [id number] PATHOLOGIST MILLINERY COPYIST SHONDA GANNON M.D. Performed By: #### G LULS #### Point of Care testing , PT Coag (PPP) [Time] 15.5 s High 9.0-12.9 [facility] Comment on above: Performed By: #### GLULS #### Point of Care testing , Prothrombin Time INRon 10-29 INR Coag (PPP) [Relative time] 1.4 {INR} Normal [facility] Comment on above: Order Comment: Comment NOW PLEASE Result Comment: INR Therapeutic Range A) Pre- and Peroperative OAT started two weeks before surgery. NOT HIP SURGERY: 1.5 - 2.5 HIP SURGERY: 2 - 3 B) Primary and secondary prevention of venous THROMBOSIS: 2 - 3 C) Active venous thrombosis, pulmonary embolism and prevention of recurrent venous thrombosis: 2 - 3 D) Prevention of arterial thromboembolism including patients with mechanical heart valves: 3 - 4.5 PERFORMED BY: [facility] [place] [address] PATHOLOGIST MILLINERY COPYIST SHONDA GANNON M.D. Performed By: #### A BG #### Point of Care testing , PT Coag (PPP) [Time] 15.9 s High 9.0-12.9 [facility] Comment on above: Order Comment: Comment NOW PLEASE Performed By: #### A BG #### Point of Care testing , Arterial Blood Gason 022 ABG Base Excess 1.5 mmol/L Normal -3.0-3.0 [facility] Comment on above: Performed By: #### ABG #### Point of Care testing , ABG Frac Inspired O2 30 % [facility] Comment on above: Performed By: #### ABG #### Point of Care testing , ABG Oxygen Content 8.0 mmol/L Normal 6.6-9.7 [facility] Comment on above: Performed By: #### ABG #### Point of Care testing , ABG Oxygen Saturation 98.3 % Normal 95.0-100.0 [facility] Comment on above: Performed By: #### ABG #### Point of Care testing , ABG PCO2 40.7 mm[Hg] Normal 35.0-45.0 [facility] Comment on above: Performed By: #### ABG #### Point of Care testing , ABG PEEP 5 [facility] Comment on above: Performed By: #### ABG #### Point of Care testing , ABG PH 7.42 Normal 7.35-7.45 [facility] Comment on above: Performed By: #### ABG #### Point of Care testing , ABG PO2 94.7 mm[Hg] Normal 80.0-100.0 [facility] Comment on above: Performed By: #### ABG #### Point of Care testing , ABG TV 500 mL [facility] Comment on above: Performed By: #### ABG #### Point of Care testing , CO2 [Moles/Vol] 27.2 mmol/L High 23.0-27.0 [facility] Comment on above: Performed By: #### ABG #### Point of Care testing , HCO3 (Bld) [Moles/Vol] 26.0 mmol/L Normal 23.0-29.0 [facility] Comment on above: Performed By: #### ABG #### Point of Care testing , Respiratory Critical [facility] Comment on above: Result Comment: Critical Value called on : 10/27/2021 at 04:57 PERFORMED BY: [facility] [address] [place] [address] PATHOLOGIST MILLINERY COPYIST SHONDA GANNON M.D. Performed By: #### A BG #### Point of Care testing , Set Respiratory Rate 12 [facility] Comment on above: Performed By: #### ABG #### Point of Care testing , VBG Draw Site Right Radial [facility] Comment on above: Performed By: #### ABG #### Point of Care testing , Ventilator Mode AC [facility] Comment on above: Performed By: #### ABG #### Point of Care testing , Basic Metabolic Panelon 09-30 Calcium [Mass/Vol] 8.5 mg/dL Normal 8.2-10.2 [facility] Comment on above: Performed By: #### ABG #### Point of Care testing , Chloride [Moles/Vol] 101 mmol/L Normal 95-114 [facility] Comment on above: Performed By: #### ABG #### Point of Care testing , CO2 [Moles/Vol] 24.2 mmol/L Normal 22.0-30.0 [facility] Comment on above: Performed By: #### ABG #### Point of Care testing , Creatinine [Mass/Vol] 1.04 mg/dL Normal 0.64-1.27 [facility] Comment on above: Performed By: #### ABG #### Point of Care testing , Creatinine Clr Calc Pharmacy 88.67 [facility] Comment on above: Result Comment: PERFORMED BY: [facility] [place] [address] PATHOLOGIST MILLINERY COPYIST SHONDA GANNON M.D. Performed By: #### A BG #### Point of Care testing , Estimated GFR ( Peri > 60 [facility] Comment on above: Result Comment: GFR estimated reference range: According to KDOQI guidelines, <60 ml/min/1.73m2 is sufficient to diagnose a patient with chronic kidney disease. Performed By: #### A BG #### Point of Care testing , Estimated GFR (Non- Am > 60 [facility] Comment on above: Performed By: #### ABG #### Point of Care testing , Glucose [Mass/Vol] 150 mg/dL High 70-100 [facility] Comment on above: Result Comment: Random Glucose Reference Range is dependent on time and content of last meal. Glucose of more than 200 mg/dL in a nonstressed, ambulatory subject supports the diagnosis of Diabetes Mellitus. ADA recommended reference range Performed By: #### A BG #### Point of Care testing , Potassium [Moles/Vol] 4.3 mmol/L Normal 3.5-5.1 [facility] Comment on above: Performed By: #### ABG #### Point of Care testing , Sodium [Moles/Vol] 136 mmol/L Normal 136-146 [facility] Comment on above: Performed By: #### ABG #### Point of Care testing , Urea nitrogen [Mass/Vol] 15 mg/dL Normal 9-23 [facility] Comment on above: Performed By: #### ABG #### Point of Care testing , Glucose Poct Glucometerson 0 10-27-2021 Commemt1 Glu2: Cleaned Meter [facility] Comment on above: Result Comment: PERFORMED BY: [address] [place] [address] PATHOLOGIST MILLINERY COPYIST SHONDA GANNON M.D. Performed By: #### G LULS #### Point of Care testing , Glucose [Mass/Vol] 145 mg/dL [facility] Comment on above: Result Comment: Random Glucose Reference Range is dependent on time and content of last meal. Glucose of more than 200 mg/dL in a nonstressed, ambulatory subject supports the diagnosis of Diabetes Mellitus. Performed By: #### G LULS #### Point of Care testing , Commemt1 Glu2: Cleaned Meter [facility] Comment on above: Result Comment: PERFORMED BY: [address] [place] [address] PATHOLOGIST MILLINERY COPYIST SHONDA GANNON M.D. Performed By: #### A BG #### Point of Care testing , Glucose [Mass/Vol] 148 mg/dL [facility] Comment on above: Result Comment: Random Glucose Reference Range is dependent on time and content of last meal. Glucose of more than 200 mg/dL in a nonstressed, ambulatory subject supports the diagnosis of Diabetes Mellitus. Performed By: #### A BG #### Point of Care testing , Commemt1 Glu2: Cleaned Meter [facility] Comment on above: Result Comment: PERFORMED BY: [address] [place] [id number] PATHOLOGIST MILLINERY COPYIST SHONDA GANNON M.D. Performed By: #### G LULS #### Point of Care testing , Glucose [Mass/Vol] 145 mg/dL [facility] Comment on above: Result Comment: Random Glucose Reference Range is dependent on time and content of last meal. Glucose of more than 200 mg/dL in a nonstressed, ambulatory subject supports the diagnosis of Diabetes Mellitus. Performed By: #### G LULS #### Point of Care testing , Commemt1 Glu2: Cleaned Meter [facility] Comment on above: Result Comment: PERFORMED BY: [place] [id number] PATHOLOGIST MILLINERY COPYIST SHONDA GANNON M.D. Performed By: #### G LULS #### Point of Care testing , Glucose [Mass/Vol] 130 mg/dL [facility] Comment on above: Result Comment: Random Glucose Reference Range is dependent on time and content of last meal. Glucose of more than 200 mg/dL in a nonstressed, ambulatory subject supports the diagnosis of Diabetes Mellitus. Performed By: #### G LULS #### Point of Care testing , XR chest 1V portableon 10-27 XR chest 1V portable [facility] Main [place] [address] [place] [address] XRay Report Signed Patient: Kyler Mcfarland MR#: [id number] : 1950 Acct:[id number] Age/Sex: 71 / M ADM Date: 10/26/21 Loc: Room: [address] [place] [address] Type: ADM IN Attending Dr: Yue Fleming MD Ordering Provider: Eleni Floyd APRN, [facility] Date of Service: 10/27/21 XR/XR chest 1V portable: respiratory failure Copies to: Eleni Floyd APRN [facility] Yue Fleming MD PORTABLE AP SEMIERECT CHEST 0606 hours CLINICAL HISTORY: Respiratory failure on ventilator COMPARISON: 10/26/2021 Median sternotomy wires are present. Tubes and lines are unchanged from the comparison. The cardiac and mediastinal contours are stable. Minor parenchymal changes are again seen. There is no new consolidation. Pleural effusion is not excluded without a lateral view. No pneumothorax is noted. Multiple old right rib fractures are present. There is also degenerative change at the spine. XR/XR chest 1V portable IMPRESSION: CHRONIC CHANGES. NO ACUTE FINDINGS. Impression dictated by: Joan Mccabe M.D.10/27/2021 7:22 AM Dictation Location: [place] [address] Transcribed By: [facility] 10/27/21721 Dictated By: Joan Mccabe MD 10/27/21719 Signed By: 10/27/21721 [facility] ABO/Rh Retypeon 10-26-2021 ABO/RH Recheck Result Positive [facility] Comment on above: Result Comment: PERFORMED BY: [place] [address] PATHOLOGIST MILLINERY COPYIST SHONDA GANNON M.D. Arterial Blood Gason 022 ABG Base Excess 0.0 mmol/L Normal -3.0-3.0 [facility] Comment on above: Performed By: #### ABG #### Point of Care testing , ABG Frac Inspired O2 40 % [facility] Comment on above: Performed By: #### ABG #### Point of Care testing , ABG Oxygen Content 8.9 mmol/L Normal 6.6-9.7 [facility] Comment on above: Performed By: #### ABG #### Point of Care testing , ABG Oxygen Saturation 99.1 % Normal 95.0-100.0 [facility] Comment on above: Performed By: #### ABG #### Point of Care testing , ABG PCO2 34.9 mm[Hg] Low 35.0-45.0 [facility] Comment on above: Performed By: #### ABG #### Point of Care testing , ABG PEEP 5 [facility] Comment on above: Performed By: #### ABG #### Point of Care testing , ABG PH 7.45 Normal 7.35-7.45 [facility] Comment on above: Performed By: #### ABG #### Point of Care testing , ABG PO2 135.5 mm[Hg] Off scale high 80.0-100.0 [facility] Comment on above: Performed By: #### ABG #### Point of Care testing , ABG TV 550 mL [facility] Comment on above: Performed By: #### ABG #### Point of Care testing , CO2 [Moles/Vol] 24.6 mmol/L Normal 23.0-27.0 [facility] Comment on above: Performed By: #### ABG #### Point of Care testing , HCO3 (Bld) [Moles/Vol] 23.5 mmol/L Normal 23.0-29.0 [facility] Comment on above: Performed By: #### ABG #### Point of Care testing , Respiratory Critical [facility] Comment on above: Result Comment: Critical Value called on : 10/26/2021 at 09:40 PERFORMED BY: [facility] [address] [place] [address] PATHOLOGIST MILLINERY COPYIST SHONDA GANNON M.D. Performed By: #### A BG #### Point of Care testing , Set Respiratory Rate 14 Normal [facility] Comment on above: Performed By: #### ABG #### Point of Care testing , VBG Draw Site Left Brachial Normal [facility] Comment on above: Performed By: #### ABG #### Point of Care testing , Ventilator Mode AC [facility] Comment on above: Performed By: #### ABG #### Point of Care testing , B-Type Natriuretic Peptideon 10-26-2021 Natriuretic peptide B (Bld) [Mass/Vol] 127.0 pg/mL High 5-100 [facility] Comment on above: Order Comment: Comment Add on to previou s lab draw Result Comment: PERF ORMED BY: [facility] [address] [place] [address] PATHOLOGIST MILLINERY COPYIST SHONDA GANNON M.D. Performed By: #### A BG #### Point of Care testing , COVID-19 Antigenon 2 COVID-19 Antigen Healthcare Worker?: N Reference Range: Negative Negative results, from patients with symptom onset beyond five days, should be treated as presumptive and confirmation with a molecular assay, if necessary, for patient management, may be performed. Negative results do not rule out COVID-19 and should not be used as the sole basis for treatment or patient management decisions, including infection control decisions. Negative results should be considered in the context of a patient's recent exposures, history and the presence of clinical signs and symptoms consistent with COVID-19. The Candy SARS Antigen SIRENA does not differentiate between SARS-CoV and SARS-CoV-2. This test was developed and its performance characteristic determined by [employer] and validated at [facility]. This test has not been FDA cleared or approved. This test has been authorized by FDA under an Emergency Use Authorization (EUA). This test has been validated in accordance with the FDA's Guidance Document (Policy for Diagnostics Testing in Laboratories Certified to Perform High Complexity Testing under CLIA prior to Emergency Use Authorization for Coronavirus Disease-2019 during the Public Health Emergency) issued on October 01, 2019. This test is only authorized for the duration of time the declaration that circumstances exist justifying the authorization of the emergency use of in vitro diagnostic tests for detection of SARS-CoV-2 virus and/or diagnosis of COVID-19 infection under section 564(b)(1) of the Act, 21 U.S.C. 360bbb-3(b)(1), unless the authorization is terminated or revoked sooner. SARS-CoV+SARS-CoV-2 (COVID-19) Ag [Presence] in Respiratory specimen by Rapid immunoassay Negative for SARS Antigen by SIRENA PERFORMED BY: [address] [address] PATHOLOGIST MILLINERY COPYIST SHONDA GANNON M.D. Normal [facility] Comment on above: Performed By: #### GLULS #### Point of Care testing , COVID-19 [facility] 10-26-2021 SARS-CoV-2 (COVID-19) RNA IVÁN+probe Ql (Unsp spec) Negative Normal Negative [facility] Comment on above: Order Comment: Healthcare Worker?: N Result Comment: Testing for SARS-CoV-2 by RT-PCR This test was developed and its performance characteristics determined by [email or web address]) and validated at the [facility]. This test has not been FDA cleared or approved. This test has been authorized by FDA under an Emergency Use Authorization (EUA). This test has been validated in accordance with the FDA's Guidance Document (Policy for Diagnostics Testing in Laboratories Certified to Perform High Complexity Testing under CLIA prior to Emergency Use Authorization for Coronavirus Disease-2019 during the Public Health Emergency) issued on October 01, 2019. This test is only authorized for the duration of time the declaration that circumstances exist justifying the authorization of the emergency use of in vitro diagnostic tests for detection of SARS-CoV-2 virus and/or diagnosis of COVID-19 infection under section 564(b)(1) of the Act, 21 U.S.C. 360bbb-3(b)(1), unless the authorization is terminated or revoked sooner. PERFORMED BY: [place] [address] PATHOLOGIST MILLINERY COPYIST SHONDA GANNON M.D. Performed By: #### G LULS #### Point of Care testing , Complete Blood Count Auto Di ffon 10-26-2021 Basophils (Bld) [#/Vol] 0.1 10*3/uL Normal 0.0-0.2 [facility] Comment on above: Result Comment: PERFORMED BY: [place] [address] PATHOLOGIST MILLINERY COPYIST SHONDA GANNON M.D. Performed By: #### C BC, CMP #### [address] Basophils/100 WBC (Bld) 0.7 % Normal . [facility] Comment on above: Performed By: #### CBC, CMP #### [address] Eosinophils (Bld) [#/Vol] 0.1 10*3/uL Normal 0.0-0.45 [facility] Comment on above: Performed By: #### CBC, CMP #### [address] Eosinophils/100 WBC (Bld) 0.7 % Normal . [facility] Comment on above: Performed By: #### CBC, CMP #### [address] Erythrocyte distribution width (RBC) [Ratio] 14.2 % Normal 12.0-14.8 [facility] Comment on above: Performed By: #### CBC, CMP #### [address] Hematocrit (Bld) [Volume fraction] 40.6 % Normal 38.8-50.0 [facility] Comment on above: Performed By: #### CBC, CMP #### [facility] [address] Hemoglobin (Bld) [Mass/Vol] 13.5 g/dL Normal 13.0-17.0 [facility] Comment on above: Performed By: #### CBC, CMP #### [facility] [address] Lymphocytes (Bld) [#/Vol] 1.1 10*3/uL Normal 1.00-4.8 [facility] Comment on above: Performed By: #### CBC, CMP #### [address] Lymphocytes/100 WBC (Bld) 11.5 % Normal . [facility] Comment on above: Performed By: #### CBC, CMP #### [address] MCH (RBC) [Entitic mass] 29.6 pg Normal 27.5-35.2 [facility] Comment on above: Performed By: #### CBC, CMP #### [address] MCV (RBC) [Entitic vol] 89.1 fL Normal 83.5-101 [facility] Comment on above: Performed By: #### CBC, CMP #### [address] Mean Corpuscular HGB Conc 33.3 g/dL Normal 32.5-35.6 [facility] Comment on above: Performed By: #### CBC, CMP #### [address] Monocytes (Bld) [#/Vol] 0.2 10*3/uL Normal 0.0-0.8 [facility] Comment on above: Performed By: #### CBC, CMP #### [address] Monocytes/100 WBC (Bld) 2.4 % Normal . [facility] Comment on above: Performed By: #### CBC, CMP #### [facility] [address] [place] [address] [place] Neutrophils (Bld) [#/Vol] 8.2 10*3/uL High 1.8-7.7 [facility] Comment on above: Performed By: #### CBC, CMP #### [facility] [address] [place] [id number] [place] Neutrophils/100 WBC (Bld) 84.7 % Normal . [facility] Comment on above: Performed By: #### CBC, CMP #### [facility] [address] [place] [id number] [place] Nucleated RBC/100 WBC (Bld) [Ratio] 0.1 % Normal 0-0.5 [facility] Comment on above: Performed By: #### CBC, CMP #### [facility] [address] Platelet mean volume (Bld) [Entitic vol] 8.6 fL Normal 6.6-10.1 [facility] Comment on above: Performed By: #### CBC, CMP #### [facility] [address] [place] [address] [place] Platelets (Bld) [#/Vol] 241 10*3/uL Normal 150-450 [facility] Comment on above: Performed By: #### CBC, CMP #### [facility] [address] [place] [id number] [place] RBC (Bld) [#/Vol] 4.56 10*6/uL Normal 3.90-5.60 [facility] Comment on above: Performed By: #### CBC, CMP #### [facility] [address] [place] [id number] [place] WBC (Bld) [#/Vol] 9.7 10*3/uL Normal 4.5-11.0 [facility] Comment on above: Performed By: #### CBC, CMP #### [facility] [address] Comprehensive Metabolic Pane fariba 10-26-2021 Albumin [Mass/Vol] 3.1 g/dL Low 3.2-5.5 [facility] Comment on above: Performed By: #### CBC, CMP #### [facility] [address] [place] [address] Albumin/Globulin [Mass ratio] 1.1 {ratio} Normal [facility] Comment on above: Performed By: #### CBC, CMP #### [facility] [address] ALP [Catalytic activity/Vol] 63 U/L Normal 32-92 [facility] Comment on above: Performed By: #### CBC, CMP #### [facility] [address] [place] [address] ALT [Catalytic activity/Vol] 21 U/L Normal 10-60 [facility] Comment on above: Performed By: #### CBC, CMP #### [address] AST [Catalytic activity/Vol] 28 U/L Normal 10-42 [facility] Comment on above: Performed By: #### CBC, CMP #### [address] Bilirubin [Mass/Vol] 1.0 mg/dL Normal 0.3-1.2 [facility] Comment on above: Performed By: #### CBC, CMP #### [address] Calcium [Mass/Vol] 8.2 mg/dL Normal 8.2-10.2 [facility] Comment on above: Performed By: #### CBC, CMP #### [facility] [address] [place] [address] [place] Chloride [Moles/Vol] 101 mmol/L Normal 95-114 [facility] Comment on above: Performed By: #### CBC, CMP #### [facility] [address] [place] [address] [place] CO2 [Moles/Vol] 23.4 mmol/L Normal 22.0-30.0 [facility] Comment on above: Performed By: #### CBC, CMP #### [facility] [address] [place] [address] [place] Creatinine [Mass/Vol] 1.38 mg/dL High 0.64-1.27 [facility] Comment on above: Performed By: #### CBC, CMP #### [address] Creatinine Clr Calc Pharmacy 65.76 [facility] Comment on above: Result Comment: PERFORMED BY: [place] [address] PATHOLOGIST MILLINERY COPYIST SHONDA GANNON M.D. Performed By: #### C BC, CMP #### [address] Estimated GFR ( Peri > 60 [facility] Comment on above: Result Comment: GFR estimated reference range: According to KDOQI guidelines, <60 ml/min/1.73m2 is sufficient to diagnose a patient with chronic kidney disease. Performed By: #### C BC, CMP #### [address] Estimated GFR (Non- Am 51 [facility] Comment on above: Performed By: #### CBC, CMP #### [address] Globulin (S) [Mass/Vol] 2.7 g/dL [facility] Comment on above: Performed By: #### CBC, CMP #### [address] Glucose [Mass/Vol] 231 mg/dL High 70-100 [facility] Comment on above: Result Comment: Random Glucose Reference Range is dependent on time and content of last meal. Glucose of more than 200 mg/dL in a nonstressed, ambulatory subject supports the diagnosis of Diabetes Mellitus. ADA recommended reference range Performed By: #### C BC, CMP #### [address] Potassium [Moles/Vol] 3.5 mmol/L Normal 3.5-5.1 [facility] Comment on above: Performed By: #### CBC, CMP #### [place] [address] [place] Protein [Mass/Vol] 5.8 g/dL Low 6.1-7.9 [facility] Comment on above: Performed By: #### CBC, CMP #### [facility] [address] Sodium [Moles/Vol] 136 mmol/L Normal 136-146 [facility] Comment on above: Performed By: #### CBC, CMP #### [facility] [address] Urea nitrogen [Mass/Vol] 18 mg/dL Normal 9-23 [facility] Comment on above: Performed By: #### CBC, CMP #### [facility] [address] ECG 12 lead ECGon 10-26-2021 ECG 12 lead ECG [facility] Main [place] [address] [place] [address] Electrocardiograph Report Signed Patient: Kyler Mcfarland MR#: [id number] 786 : 1950 Acct:[id number] Age/Sex: 71 / M ADM Date: 10/26/21 Loc: Room: [address] [place] [address] Type: DIS IN Attending Dr: Evelina Sloan MD Ordering Provider: Yue Fleming MD Date of Service: 10/26/21 ECG/ECG 12 lead ECG: pt evalulation Copies to: Test Reason : Blood Pressure : / mmHG Vent. Rate : 051 BPM Atrial Rate : 051 BPM P-R Int : 274 ms QRS Dur : 098 ms QT Int : 502 ms P-R-T Axes : 088 064 095 degrees QTc Int : 462 ms Sinus bradycardia with 1st degree AV block Low voltage QRS Septal infarct (cited on or before 26-OCT-2021) Abnormal ECG When compared with ECG of 26-OCT-2021 04:27, Sinus rhythm has replaced Junctional rhythm Vent. rate has decreased BY 36 BPM Confirmed by ROSHAN CANAS MD ([id number]) on 10/27/2021 3:43:48 PM Referred By: Electronically Signed By:ROSHAN CANAS MD Transcribed By: MUS Signed By Roshan Canas MD 0 10/27/21 1543 [facility] ECG 12 lead ECG [facility] Main [place] [address] [place] [address] Electrocardiograph Report Signed Patient: Kyler Mcfarland MR#: [id number] 786 : 1950 Acct:[id number] Age/Sex: 71 / M ADM Date: 10/26/21 Loc: Room: [address] [place] [address] Type: DIS IN Attending Dr: Evelina Sloan MD Ordering Provider: Jcarlos Mirza DO Date of Service: 10/26/21 ECG/ECG 12 lead ECG: Shortness of Breath/Dyspnea Copies to: Test Reason : Blood Pressure : / mmHG Vent. Rate : 087 BPM Atrial Rate : 086 BPM P-R Int : 000 ms QRS Dur : 094 ms QT Int : 382 ms P-R-T Axes : 000 069 104 degrees QTc Int : 459 ms Accelerated Junctional rhythm Low voltage QRS Septal infarct , age undetermined Marked ST abnormality, possible inferior subendocardial injury Abnormal ECG No previous ECGs available Confirmed by Jcarlos Mirza DO ([id number]) on 10/26/2021 7:00:06 AM Referred By: Electronically Signed By:Jcarlos Mirza DO Transcribed By: MUS Signed By Jcarlos Mirza DO 10/26 0700 [facility] Fresh Frozen Plasmaon 2021 Fresh Frozen Plasma TRANSFUSED 10/26/21 2349 [facility] Glucose Poct Glucometerson 0 10-26-2021 Commemt1 Glu2: Cleaned Meter [facility] Comment on above: Result Comment: PERFORMED BY: [place] [address] PATHOLOGIST MILLINERY COPYIST SHONDA GANNON M.D. Performed By: #### G YAHAIRA #### Point of Care testing , Glucose [Mass/Vol] 136 mg/dL [facility] Comment on above: Result Comment: Random Glucose Reference Range is dependent on time and content of last meal. Glucose of more than 200 mg/dL in a nonstressed, ambulatory subject supports the diagnosis of Diabetes Mellitus. Performed By: #### G LULS #### Point of Care testing , Commemt1 Glu2: Cleaned Meter Normal [facility] Comment on above: Result Comment: PERFORMED BY: [facility] [address] [place] [address] PATHOLOGIST MILLINERY COPYIST SHONDA GANNON M.D. Performed By: #### G LULS #### Point of Care testing , Glucose [Mass/Vol] 131 mg/dL Normal [facility] Comment on above: Result Comment: Random Glucose Reference Range is dependent on time and content of last meal. Glucose of more than 200 mg/dL in a nonstressed, ambulatory subject supports the diagnosis of Diabetes Mellitus. Performed By: #### G LULS #### Point of Care testing , Partial Thromboplastin Timeo n 10-26-2021 aPTT Coag (Bld) [Time] 35.5 s Normal 25.1-36.5 [facility] Comment on above: Result Comment: PERFORMED BY: [facility] [address] [facility] [place] [address] PATHOLOGIST MILLINERY COPYIST SHONDA GANNON M.D. Performed By: #### G LULS #### Point of Care testing , Prothrombin Time INRon 10-26 INR Coag (PPP) [Relative time] 1.8 {INR} [facility] Comment on above: Result Comment: INR Therapeutic Range A) Pre- and Peroperative OAT started two weeks before surgery. NOT HIP SURGERY: 1.5 - 2.5 HIP SURGERY: 2 - 3 B) Primary and secondary prevention of venous THROMBOSIS: 2 - 3 C) Active venous thrombosis, pulmonary embolism and prevention of recurrent venous thrombosis: 2 - 3 D) Prevention of arterial thromboembolism including patients with mechanical heart valves: 3 - 4.5 Performed By: #### G LULS #### Point of Care testing , PT Coag (PPP) [Time] 20.1 s High 9.0-12.9 [facility] Comment on above: Performed By: #### GLULS #### Point of Care testing , Candy Ag Negativeon 10-27-19 Candy Ag Negative Negative Normal Negative [facility] Comment on above: Result Comment: This is a duplicate Ana a SARS Antigen (SIRENA) result to be used for statistical tracking purpose only. PERFORMED BY: [address] [place] [address] PATHOLOGIST MILLINERY COPYIST SHONDA GANNON M.D. Performed By: #### G LULS #### Point of Care testing , Thyroid Stimulating Hormoneo n 10-26-2021 TSH Qn 2.28 m[IU]/L Normal 0.45-5.33 [facility] Comment on above: Result Comment: PERFORMED BY: [address] [place] [address] PATHOLOGIST MILLINERY COPYIST SHONDA GANNON M.D. Performed By: #### T SH3 #### [place] [address] [place] Type and Screenon 10-26-2021 ABO and Rh group Nom (Bld) Blood group O Rh(D) positive Normal [facility] Comment on above: Order Comment: Transfuse now? Y Number o f units to transfuse now? 2 Result Comment: PERF ORMED BY: [address] [place] [address] PATHOLOGIST MILLINERY COPYIST SHONDA GANNON M.D. Urinalysison 10-26-2021 Appearance (U) Clear Normal Clear [facility] Comment on above: Order Comment: Name Collection Type:: Fo prashanth Catheter Performed By: #### C UU, UA #### [facility] [address] [place] [address] [place] Bilirubin,Urine Negative Normal Negative [facility] Comment on above: Order Comment: Name Collection Type:: Fo prashanth Catheter Performed By: #### C UU, UA #### [place] [id number] [place] Color (U) Yellow Normal Yellow [facility] Comment on above: Order Comment: Name Collection Type:: Fo prashanth Catheter Performed By: #### C UU, UA #### [place] [address] [place] Glucose Ql (U) Normal Normal Normal [facility] Comment on above: Order Comment: Name Collection Type:: Fo prashanth Catheter Performed By: #### C UU, UA #### [address] Ketones Ql (U) Negative Normal Negative [facility] Comment on above: Order Comment: Name Collection Type:: Fo prashanth Catheter Performed By: #### C UU, UA #### [address] Leukocyte esterase Test strip Ql (U) Negative Normal Negative [facility] Comment on above: Order Comment: Name Collection Type:: Fo prashanth Catheter Performed By: #### C UU, UA #### [address] Nitrite,Urine Negative Normal Negative [facility] Comment on above: Order Comment: Name Collection Type:: Fo prashanth Catheter Performed By: #### C UU, UA #### [address] Occult Blood,Urine Negative Normal Negative [facility] Comment on above: Order Comment: Name Collection Type:: Fo prashanth Catheter Result Comment: PERF ORMED BY: [place] [address] PATHOLOGIST MILLINERY COPYIST SHONDA GANNON M.D. Performed By: #### C UU, UA #### [address] pH (U) 5.0 [pH] Normal 5.0-9.0 [facility] Comment on above: Order Comment: Name Collection Type:: Fo prashanth Catheter Performed By: #### C UU, UA #### [place] [address] [place] Protein,Urine Negative Normal Negative [facility] Comment on above: Order Comment: Name Collection Type:: Fo prashanth Catheter Performed By: #### C UU, UA #### [address] Specificy Ethel,Urine 1.018 Normal 1.001-1.03 0 [facility] Comment on above: Order Comment: Name Collection Type:: Fo prashanth Catheter Performed By: #### C UU, UA #### [address] Urobilinogen,Uri ne Normal Normal Normal [facility] Comment on above: Order Comment: Name Collection Type:: Fo prashanth Catheter Performed By: #### C UU, UA #### [address] Urine Cultureon 10-26-2021 Bacteria identified Cx Nom (U) No Growth 2 Days PERFORMED BY: [place] [address] PATHOLOGIST MILLINERY COPYIST SHONDA GANNON M.D. [facility] Comment on above: Performed By: #### CUU, UA #### [address] XR abdomen 1Von 10-26-2021 XR abdomen 1V [facility] [place] [address] XRay Report Signed Patient: Kyler Mcfarland MR#: [id number] 786 : 1950 Acct:[id number] Age/Sex: 71 / M ADM Date: 10/26/21 Loc: Room: [address] [place] [address] Type: ADM IN Attending Dr: Yue Fleming MD Ordering Provider: Jcarlos Mirza DO Date of Service: 10/26/21 XR/XR chest 1V portable: post intubation ([id number]) XR/XR abdomen 1V: NG TUBE PLACEMENT Copies to: MD Jcarlos Mendiola DO XR chest 1V portable, XR abdomen 1V 10/26/2021 5:26 AM SIGNS AND SYMPTOMS: ET tube and enteric tube placement. Comment and throat swelling. PROTOCOL: Frontal radiographs of the chest and abdomen COMPARISON: None FINDINGS: The trachea is midline. An ET tube is in satisfactory position. The enteric tube extends off the inferior margin of the chest radiograph. There is evidence of prior sternotomy. There is mild cardiomegaly. Mild pleural-parenchymal opacities are noted. Remote right-sided rib fractures are noted. The bony thorax is intact, otherwise. There is no radiographic evidence of free air. The tip of the enteric tube extends below left hemidiaphragm into the expected location of the gastric fundus. There is a nonobstructive bowel gas pattern. XR/XR chest 1V portable IMPRESSION: Satisfactory positioning of the ET tube and enteric tube. Mild bibasilar pleural-parenchymal opacities are noted with mild cardiomegaly. Impression dictated by: Derick Seals M.D.10/26/2021 8:49 AM Dictation Location: [facility]- Transcribed By: LAYLA 10/26/21848 Dictated By: Derick Seals II, MD 10/26/2147 Signed By: 10/26/21848 [facility] APTTon 11-22-2017 aPTT Coag time (Bld) 50.1 s High 25.0-35.0 [facility] Comment on above: Result Comment: ALL RESULTS MUST BE INTE RPRETED WITH RESPECT TO BLOOD DRAWING ARTIFACTOR DILUTION ERROR OF ANTICOAGULANT AT THE TIME OF SAMPLING.THE APTT SHOULD NOT BE USED TO MONITOR UNFRACTIONATED HEPARIN THERAPY, THIS LABORATORY NO LONGER HAS AN ESTABLISHED THERAPEUTIC RANGE BASEDON THE APTT. IT IS RECOMMENDED THAT THE UFH - HEPARIN ASSAY (ANTI-XAACTIVITY) BE USED FOR THIS PURPOSE. Performed By: #### 5 7307, [address] ####[address] Cardiovascular Lab Reporton 11-22-2017 Cardiovascular Lab Report [facility] Patient Name: Kyler Mcfarland [facility] MR #: [id number] Physician: Juan Deshpande M.D.Medicine Service Date: 11/22/2017Division of Birthdate: 1950Cardiology Room #: CCAdult Cardiovascular[place] [address]Phone Fax Cardiovascular Laboratory ReportINDICATION: Kyler Mcfarland is a 67-year-old man with atrial fibrillation.He is referred for cardioversion. He has been maintained onanticoagulation with therapeutic INR for the past several months.PROCEDURE: Synchronized cardioversion of atrial fibrillation.METHODS: Procedure was explained patient with risks and benefits. Hesigned informed consent. He was brought to manager cardiac cath in a fasting state.An IV line was secured. He was given sedation with Versed at 3 mg andfentanyl 25 mcg. Using the patches applied in the anterior and posteriorposition biphasic synchronized DC cardioversion was performed with 360joules and the patient reverted to sinus rhythm which was confirmed byelectrocardiogram. The patient tolerated the procedure well. He will beobserved in the cardiovascular recovery area for 2-3 hours and thendischarged to home.Electronically Signed by:Juan Bauman M.D. 11/22/2017 04:17 P Juan Bauman M.D.Date Dict: 11/22/2017/12:06 P/Juan Bauman M.D.Date Trans: 11/22/2017 01:52 P/[id number]: Marino Castillo D.O. [address] [facility] [address] Normal [facility] PROTHROMBIN TIMEon 8 INR Coag RelTime (PPP) 3.19 {INR} High 0.91-1.16 [facility] Comment on above: Result Comment: ACCCP RECOMMENDED INR FO R WARFARIN THERAPY CONDITION INRPROPHYLAXIS OF VENOUS THROMBOSIS 2-3(HIGH-RISK SURGERY)TREATMENT OF VENOUS THROMBOSIS 2-3TREATMENT OF PULMONARY EMBOLISM 2-3PREVENTION OF SYSTEMIC EMBOLISM: 2-3 ACUTE MYOCARDIAL INFARCTION TISSUE HEART VALVES VALVULAR HEART DISEASE ATRIAL FIBRILLATION RECURRENT SYSTEMIC EMBOLISMMECHANICAL HEART VALVE 2.5-3.5 FROM: ORAL ANTICOAGULANTS. MECHANISM OF ACTION, CLINICALEFFECTIVENESS, AND OPTIMAL THERAPEUTIC RANGE. [id number]-246S. Performed By: #### 5 7307, [address] ####[facility] Prothrombin time (PT) Coag time (PPP) 32.9 s High 12.3-14.8 [facility] Comment on above: Result Comment: ALL RESULTS MUST BE INTE RPRETED WITH RESPECT TO BLOOD DRAWING ARTIFACTOR DILUTION ERROR OF ANTICOAGULANT AT THE TIME OF SAMPLING. Performed By: #### 5 7307, [address] ####[facility] Vital Signs Date Time Vital Sign Value Performing Clinician Facility 03-20-2024 10:31-0400 Body height 172.72 cm [facility] 03-20-2024 10:31-0400 Body mass index (BMI) [Ratio] 44.5 kg/m2 [facility] 03-20-2024 10:31-0400 Body temperature 95.3 [degF] [facility] 03-20-2024 10:31-0400 Body weight 132.95 kg [facility] 03-20-2024 10:31-0400 Diastolic blood pressure 88 mm[Hg] [facility] 03-20-2024 10:31-0400 Heart rate 65 /min [facility] 03-20-2024 10:31-0400 SaO2% (BldA) [Mass fraction] 95 % [facility] 03-20-2024 10:31-0400 Systolic blood pressure 134 mm[Hg] [facility] 03-11-2023 13:30-0400 Body height 172.72 cm Rachael Guerrero Other [facility] 03-11-2023 13:30-0400 Body mass index (BMI) [Ratio] 44.24 kg/m2 Rachael Guerrero Other [facility] 03-11-2023 13:30-0400 Body weight 132 kg Rachael Guerrero Other [facility] Other 03-11-2023 13:30-0400 Diastolic blood pressure 80 mm[Hg] Rachael Guerrero Other [facility] Other 03-11-2023 13:30-0400 SaO2% (BldA) [Mass fraction] 97 % Rachael Guerrero Other [facility] Other 03-11-2023 13:30-0400 Systolic blood pressure 130 mm[Hg] Rachael Guerrero Other [facility] Other Encounters Encounter Date Encounter Type Care Provider Facility Start: 03-26-2024 End: 03-26-2024 ambulatory [facility] Start: 03-20-2024 End: 03-20-2024 ambulatory [facility] Work Phone: Start: 03-20-2024 End: 03-20-2024 Patient encounter procedure [facility] Physician [facility] Work Phone: Start: 09-19-2023 End: 09-19-2023 ambulatory [facility] Start: 06-05-2023 End: 06-05-2023 ambulatory Rachael Guerrero Other [facility] Other Start: 06-05-2023 Nursing evaluation o f patient and report Rachael Rohrbacher [facility] Start: 03-21-2023 End: 03-21-2023 ambulatory Rachael Guerrero Other [facility] Other Start: 03-21-2023 Telephone encounter Rachael May her [facility] Start: 03-11-2023 End: 03-11-2023 ambulatory Rachael Olsoncatalinaalvarez Other [facility] Other Start: 03-11-2023 Patient encounter procedure Rachael Guerrero [facility] Start: 10-29-2022 End: 11-28-2022 ambulatory LEIGH H FAWWAD Facility:[facility]1 Start: 10-02-2022 End: 10-03-[address] MARINO CASTILLO Facility:[facility] Start: 10-01-2022 End: 10-26-2022 ambulatory LEIGH H FAWWAD Facility:[facility] Start: 08-29-2022 End: 09-28-2022 ambulatory LEIGH H FAWWAD Facility:[facility] Start: 08-01-2022 End: 08-29-2022 ambulatory LEIGH H FAWWAD Facility:[facility] Start: 07-02-2022 End: 08-01-2022 ambulatory LEIGH H FAWWAD Facility:[facility] Start: 05-31-2022 End: 07-01-2022 ambulatory LEIGH H FAWWAD Facility:[facility] Start: 05-01-2022 End: 05-30-2022 ambulatory LEIGH H FAWWAD Facility:[facility] Start: 04-01-2022 End: 04-30-2022 ambulatory LEIGH H FAWWAD Facility:[facility] Start: 03-01-2022 End: 03-31-2022 ambulatory LEIGH H FAWWAD Facility:[facility] Start: 02-23-2022 End: 02-24-2022 ambulatory RHONDA ROBI Facility:[facility] Start: 02-13-2022 End: 02-14-2022 ambulatory RHONDA ROBI Facility:[facility] Start: 01-29-2022 End: 02-28-2022 ambulatory LEIGH H FAWWAD Facility:[facility] Start: 01-12-2022 ambulatory RHONDA ROSENBAUM Facility :[facility] Start: 12-29-2021 End: 01-26-2022 ambulatory SHAIKH Melanie KNOTT Facility:[facility] Start: 10-26-2021 End: 10-30-2021 Evaluation and management of inpatient Marino Castillo Facility:[facility] Start: 11-22-2017 End: 11-23-2017 Patient encounter procedure PROVIDER UNKNOWN Facility:[facility] Procedures Date Procedure Procedure Detail Performing Clinician Start: 10-26-2021 Antibody screen Marino Castillo Comment on above: Order Comment: Trans fuse now? Y Number of units to transfuse now? 2 Result Comment: PERF ORMED BY: [facility] [address] [place] [address] PATHOLOGIST MILLINERY COPYIST SHONDA GANNON M.D. Plan of Treatment Date Care Activity Detail Author Comprehensive metabo lic 2000 panel - Serum or Plasma [facility] enter [facility] Immunizations Immunization Date Immunization Notes Care Provider Fa cility 06-05-2023 Prevnar 20 Rachael hunter Other [facility] 06-05-2023 influenza, high dose seasonal, preservative-free Rachael Guerrero Other [facility] Other 06-05-2023 influenza virus vaccine, unspecified formulation [facility] Payers Date Payer Category Payer Medicare [id number] 2021 Medicare [id number] 1959 [email or web address] [id number] Self-pay 1950 Unknown [id number] 2.16.8 [id number] 1950 Unknown [id number] 2.16.84 0.1.436353.3.579.2.593 1950 Unknown [id number] 2.16.84 0.1.351338.3.579.2.593 1950 Unknown [id number] 2.16.84 0.1.015349.3.579.2.593 1949 Unknown [id number] 2.16.84 0.1.105591.3.579.2.593 1949 Unknown [id number] 2.16.84 0.1.158648.3.579.2.593 1949 Unknown [id number] 2.16.84 0.1.929167.3.579.2.593 1950 Unknown [id number] 2.16.84 0.1.148964.3.579.2.593 1950 Unknown [id number] 2.16.84 0.1.828987.3.579.2.593 1949 Unknown [id number] 2.16.84 0.1.717417.3.579.2.593 1949 Unknown [id number] 2.16.84 0.1.612677.3.579.2.593 1949 Unknown [id number] 2.16.84 0.1.096863.3.579.2.593 1949 Unknown [id number] 2.16.84 0.1.670151.3.579.2.593 1949 Unknown [id number] 2.16.84 0.1.062257.3.579.2.593 1949 Unknown [id number] 2.16.84 0.1.846727.3.579.2.593 1950 Unknown [id number] 2.16.84 0.1.169641.3.579.2.593 Unknown [id number] 2.16.8 40.1.688855.3.579.2.531 Unknown [id number] Social History Date Type Detail Facility Sex Assigned At [facility] Other Start: 09-10-2023 Tobacco smoking stat us NCIS Never smoked tobacco (finding) [facility] Start: 1950 Sex Assigned At Male [facility] Progress note 03-26-2024 Note Date & Type Note Facility 03-26-2024 Note Patient here for 6 m o follow up CAD, PAF, and hypertension. Had echo in October 2023. Denies chest pain, palpitations, lightheadedness/syncope, and bleeding on warfarin. Says his JONES remains unchanged. Says he had some swelling in his eyebrows last week, which also itched. This resolved about 12 hours later. He will have routine labs soon for PCP. Review of Systems Cardiovascular: Positive for dyspnea on exertion and leg swelling (intermittent). Respiratory: Positive for shortness of breath. Musculoskeletal: Positive for muscle cramps. All other systems reviewed and are negative. [facility] Progress note 03-26-2024 Note Date & Type Note Facility 03-26-2024 Note Cardiovascular Medic [facility] SUBJECTIVE Chief Complaint Patient presents with Coronary Artery Disease Kyler Mcfarland is a 73 y.o. male here for follow-up. 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 Amiodarone was discontinued in the past due to abnormal thyroid function Patient here for 6 mo follow up CAD, PAF, and hypertension. Had echo in October 2023. Denies chest pain, palpitations, lightheadedness/syncope, and bleeding on warfarin. Says his JONES remains unchanged. Says he had some swelling in his eyebrows last week, which also itched. This resolved about 12 hours later. He will have routine labs soon for PCP 03/26/24 He notes that for the past few days he hasn't been sleeping well. He wakes up every few hours and has to urinate. He is waking up in the AM feeling SOB. He will get up and sit and this helps his breathing. He has noticed some mild leg swelling yesterday and today. Denies CP, dizziness/LH, palpitations, syncope. 09/19/2023 He started an inhaler last week, albuterol. Breathing is improved with starting this. He denies any changes since last seen. BP has been doing well at home, similar to reading today. Denies CP, bleeding issues, dizziness/LH, palpitations, leg swelling. Patient Active Problem List Diagnosis Abdominal pain Anomalous origin of coronary artery Coronary arteriosclerosis Gastroesophageal reflux disease Hypertensive disorder Paroxysmal atrial fibrillation (CMS/HCC) Ascending aorta dilatation (CMS/HCC) Acute airway obstruction Asthma Angioedema of tongue COPD (chronic obstructive pulmonary disease) (CMS/HCC) High cholesterol Maxillary sinusitis Medicare annual wellness visit, subsequent Rash Past Medical History: Diagnosis Date Abnormal ECG Arrhythmia Atrial fibrillation (CMS/HCC) Coronary artery disease GERD (gastroesophageal reflux disease) Hyperlipidemia Hypertension Family History Problem Relation Name Age of Onset Heart failure Mother Social History Tobacco Use Smoking status: Never Smokeless tobacco: Never Substance Use Topics Alcohol use: Yes Comment: occasional Allergies Allergen Reactions Lisinopril Angioedema ROS Cardiovascular: Positive for dyspnea on exertion (stable), orthopnea, nocturia. Respiratory: Positive for shortness of breath and sputum production. Musculoskeletal: Positive for muscle cramps. All other systems reviewed and are negative. OBJECTIVE Visit Vitals BP 123/63 (BP Location: Right arm, Patient Position: Sitting) Pulse 50 Ht 1.727 m (5' 8 ) Wt 133 kg (294 lb) SpO2 96% BMI 44.70 kg/m??? Smoking Status Never BSA 2.53 m??? Medications: Current Outpatient Medications: albuterol 90 mcg/actuation inhaler, INHALE 2 PUFFS BY MOUTH EVERY 4 TO 6 HOURS NEEDED FOR SHORTNESS OF BREATH FOR WHEEZING, Disp: , Rfl: aspirin 81 mg EC tablet, in the morning., Disp: , Rfl: atorvastatin (Lipitor) 40 mg tablet, Take 1 tablet (40 mg) by mouth at bedtime., Disp: 90 tablet, Rfl: 3 doxazosin (Cardura) 4 mg tablet, Take 1 tablet (4 mg) by mouth once daily as directed., Disp: 90 tablet, Rfl: 1 furosemide (Lasix) 40 mg tablet, Take 1 tablet (40 mg) by mouth once daily as directed., Disp: 30 tablet, Rfl: 11 irbesartan (Avapro) 75 mg tablet, Take 1 tablet (75 mg) by mouth in the morning., Disp: 90 tablet, Rfl: 3 omeprazole OTC (PriLOSEC OTC) 20 mg EC tablet, Take 20 mg by mouth before breakfast., Disp: , Rfl: warfarin (Coumadin) 5 mg tablet, warfarin 5 mg tablet TAKE 1 TABLET BY MOUTH ONCE DAILY OR DIRECTED, Disp: , Rfl: raNITIdine (Zantac) 75 mg tablet, Take 75 mg by mouth in the morning and at bedtime., Disp: , Rfl: Physical Exam Constitutional: Appearance: Normal appearance. He is obese. HENT: Head: Normocephalic and atraumatic. Right Ear: External ear normal. Left Ear: External ear normal. Eyes: Extraocular Movements: Extraocular movements intact. Pupils: Pupils are equal, round, and reactive to light. Neck: Vascular: No carotid bruit. Cardiovascular: Rate and Rhythm: Normal rate and regular rhythm. Pulses: Normal pulses. Heart sounds: Normal heart sounds. Pulmonary: Effort: Pulmonary effort is normal. Breath sounds: Normal breath sounds. Abdominal: General: Bowel sounds are normal. Palpations: Abdomen is soft. Musculoskeletal: General: Normal range of motion. Cervical back: Neck supple. Right lower le+ Pitting Edema present. Left lower le+ Pitting Edema present. Skin: General: Skin is warm and dry. Neurological: General: No focal deficit present. Mental Status: He is alert and oriented to person, place, and time. Psychiatric: Mood and Affect: Mood normal. Behavior: Behavior normal. Thought Content: Thought content normal. Judgment: Judgment normal. Labs 03/20/2023 CBC unremarkable Cr 1.08 (more content not included)... [facility] Progress note 09-19-2023 Note Date & Type Note Facility 09-19-2023 Note Cardiovascular Medic [facility] SUBJECTIVE Chief Complaint Patient presents with Coronary Artery Disease Atrial Fibrillation Kyler Mcfarland is a 73 y.o. male here for follow-up. 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 Amiodarone was discontinued in the past due to abnormal thyroid function Patient here for 6 mo follow up bradycardia, PAF, CAD, and dyspnea. 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 He had routine labs shortly after last visit also. Says his SOB is improving after starting albuterol inhaler a few times daily. Has been having LE muscle cramps lately. Denies chest pain, palpitations, lightheadedness/syncope, and bleeding on warfarin. 09/19/2023 He started an inhaler last week, albuterol. Breathing is improved with starting this. He denies any changes since last seen. BP has been doing well at home, similar to reading today. Denies CP, bleeding issues, dizziness/LH, palpitations, leg swelling. Patient Active Problem List Diagnosis Abdominal pain Anomalous origin of coronary artery Coronary arteriosclerosis Gastroesophageal reflux disease Hypertensive disorder Paroxysmal atrial fibrillation (CMS/HCC) Ascending aorta dilatation (CMS/HCC) Past Medical History: Diagnosis Date Atrial fibrillation (CMS/HCC) Coronary artery disease GERD (gastroesophageal reflux disease) Hypertension Family History Problem Relation Name Age of Onset Heart failure Mother Social History Tobacco Use Smoking status: Never Smokeless tobacco: Never Substance Use Topics Alcohol use: Yes Comment: occasional Allergies Allergen Reactions Lisinopril Angioedema ROS Cardiovascular: Positive for dyspnea on exertion (improving). Respiratory: Positive for shortness of breath and sputum production. Musculoskeletal: Positive for muscle cramps. All other systems reviewed and are negative. OBJECTIVE Visit Vitals BP 112/66 (BP Location: Left arm, Patient Position: Sitting) Pulse 71 Ht 1.727 m (5' 8 ) Wt 135 kg (297 lb) SpO2 98% BMI 45.16 kg/m??? Smoking Status Never BSA 2.54 m??? Medications: Current Outpatient Medications: albuterol 90 mcg/actuation inhaler, INHALE 2 PUFFS BY MOUTH EVERY 4 TO 6 HOURS NEEDED FOR SHORTNESS OF BREATH FOR WHEEZING, Disp: , Rfl: aspirin 81 mg EC tablet, in the morning., Disp: , Rfl: atorvastatin (Lipitor) 40 mg tablet, Take 1 tablet (40 mg) by mouth at bedtime., Disp: 90 tablet, Rfl: 3 doxazosin (Cardura) 4 mg tablet, Take 1 tablet (4 mg) by mouth once daily as directed., Disp: 90 tablet, Rfl: 1 furosemide (Lasix) 40 mg tablet, Take 1 tablet (40 mg) by mouth once daily as directed., Disp: 30 tablet, Rfl: 11 irbesartan (Avapro) 75 mg tablet, Take 1 tablet (75 mg) by mouth in the morning., Disp: 90 tablet, Rfl: 3 omeprazole OTC (PriLOSEC OTC) 20 mg EC tablet, Take 20 mg by mouth before breakfast., Disp: , Rfl: raNITIdine (Zantac) 75 mg tablet, Take 75 mg by mouth in the morning and at bedtime., Disp: , Rfl: warfarin (Coumadin) 5 mg tablet, warfarin 5 mg tablet TAKE 1 TABLET BY MOUTH ONCE DAILY OR DIRECTED, Disp: , Rfl: Physical Exam Constitutional: Appearance: Normal appearance. He is obese. HENT: Head: Normocephalic and atraumatic. Right Ear: External ear normal. Left Ear: External ear normal. Eyes: Extraocular Movements: Extraocular movements intact. Pupils: Pupils are equal, round, and reactive to light. Neck: Vascular: No carotid bruit. Cardiovascular: Rate and Rhythm: Normal rate and regular rhythm. Pulses: Normal pulses. Heart sounds: Normal heart sounds. Pulmonary: Effort: Pulmonary effort is normal. Breath sounds: Normal breath sounds. Abdominal: General: Bowel sounds are normal. Palpations: Abdomen is soft. Musculoskeletal: General: Normal range of motion. Cervical back: Neck supple. Right lower le+ Pitting Edema present. Left lower le+ Pitting Edema present. Skin: General: Skin is warm and dry. Neurological: General: No focal deficit present. Mental Status: He is alert and oriented to person, place, and time. Psychiatric: Mood and Affect: Mood normal. Behavior: Behavior normal. Thought Content: Thought content normal. Judgment: Judgment normal. Labs 03/20/2023 CBC unremarkable Cr 1.08, BUN 15, K 4.3, Na 137, eGFR >60, AST 26, ALT 34 Chol 104, trig 114, LDL 41, HDL 40 Labs 02/13/22: Cr. 1.12, BUN 16, K 3.9, GFR >60 TSH: 5.875 Labs 07/25/21: Cr. 1.19, BUN 13, K 4.1, GFR 60, ALT 34, AST 30 Lipids: chol 106, HDL 44, trig 98, LDL 42 TSH: 6.923, FT4 1.17 Testing/Procedures: Legacy Encounter on 07/04/2016 Component Date Value Ref Range Status Ventricular Rate 07/04/2016 69 BPM Final Atrial Rate 07/04/2016 69 BPM Final NC Interval 07/04/2016 210 ms Final QRS DURATION 07/04/2016 96 ms Final QT Interval 07/04/2016 (more content not included)... [facility] Progress note 09-19-2023 Note Date & Type Note Facility 09-19-2023 Note Patient here for 6 m o follow up bradycardia, PAF, CAD, and dyspnea. 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 He had routine labs shortly after last visit also. Says his SOB is improving after starting albuterol inhaler a few times daily. Has been having LE muscle cramps lately. Denies chest pain, palpitations, lightheadedness/syncope, and bleeding on warfarin. Review of Systems Cardiovascular: Positive for dyspnea on exertion (improving). Respiratory: Positive for shortness of breath and sputum production. Musculoskeletal: Positive for muscle cramps. All other systems reviewed and are negative. [facility] Evaluation note 06-05-2023 Note Date & Type Note Facility 06-05-2023 Evaluation note Encounter Date Diagnosis Assessment Notes May, Need for vaccination (ICD-10 - Z23) [facility] Other Evaluation note 03-11-2023 Note Date & Type Note Facility 03-11-2023 Evaluation note Encounter Date Diagnosis Assessment Notes Mar, Medicare annual wellness visit, subsequent (ICD-10 - Z00.00) Personalized health advice was given to the beneficiary with a referral, if appropriate, to health education of preventative counseling services or programs aimed at reducing identified risk factors and improving self-management or community-based lifestyle interventions to reduce health risks and promote self-management and wellness, including weight loss, physical activity, smoking cessation, fall prevention and nutrition. A written plan for screenings discussed, including colonoscopy, mammography, flu vaccination, other vaccinations if at risk, routine lab studies, eye exams, glaucoma screening, skin checks, risk factors for medical problems discussed, including BP control, obesity, and need for consistent exercise. Advanced care planning reviewed. Counseling was provided here today - specifically in regard to any positively answered questions as noted above. Mar, Primary hypertension (ICD-10 - I10) To goal. Prior to your visit today we reviewed your chart and outlined the tetsing and treatment needed for your care. We discussed the possible complications of high blood pressure, including increased risk for heart disease, stroke, and kidney disease. Our goal is to keep your blood pressure below 130/85 (an preferably < 120/80) and maintain a healthy weight with a BMI less than 26. We are working together to acheive these goals with the following plan; healthier diet, increased activity and exercise, understanding your medicaitons, and your complaince. You have been given relevant education handouts. Mar, Gastroesophageal reflux disease without esophagitis (ICD-10 - K21.9) Reflux symptoms remain unchanged. Discussed the importance of meal content. They should avoid overeating and eating meals late in the evening. Take medication as directed and we will continue to monitor. Mar, Atrial fibrillation, unspecified type (ICD-10 - I48.91) Atrial fibrillation is currently stable, Unaware of palpitations, or shortness of breath. No chest pain. Coumadin is tightly managed in Coumadin clinic at the [facility]. INR at goal. No issues with bleeding. Mar, Hx of CABG (ICD-10 - Z95.1) Follows with Cardiology every 6 months. Denies chest pain, SOB or palpitations. Does report intermittent lower extremity edema. [facility] Other Evaluation note Note Date & Type Note Facility Evaluation note No Information [facility] Other Evaluation note Note Date & Type Note Facility Evaluation note Diagnosis Onset Date Asthma acute Atrial fibrillation acute COPD (chronic obstructive pulmonary disease) acute Gastroesophageal reflux dise ase without esophagitis acute Heart disease acute High cholesterol acute Hypertension acute Medicare annual wellness visit, subsequent acute Screening for prostate cancer acute [facility] Work Phone: History general Narrative - Reported Note Date & Type Note Facility History general Narrative - Reported Type Medical History HTN Medical History High cholesterol Medical History Heart disease Medical History Ashtma Medical History COPD Surgical History CABG Surgical History Appendectomy Surgical History Open heart surgery [facility] Other Summary Purpose Family History No Family History Records Found Relationship Condition Age at Onset Recorded Date/T kin father Unknown Malignant neoplasm Unknown mother Congestive heart failure Unknown Unknown Heart disease Unknown Advance Directives No Advanced Directives Records Found Advance Directive Response Recorded Date/ Time Advance Directives No October 26, 2 022 5:04am Chief Complaint and Reason for Visit Chief Complaint wellness Reason for Visit Asthma Atrial fibrillation COPD (chronic obstructive pulmonary disease) Gastroesophageal reflux disease without esophagitis Heart disease High cholesterol Hypertension Medicare annual wellness visit, subsequent Screening for prostate cancer Additional Source Comments (unrecognized sect ion and content) No Status Records FoundNo Status Records FoundNo Status Records FoundNo Status Records Found INFORMATION SOURCE (unrecogn ized section and content) DATE CREATED AUTHOR 06/09/2018 [facility] DATE CREATED AUTHOR AUTHOR'S ORGANIZ ATION 08/04/2022 [facility] DATE CREATED AUTHOR AUTHOR'S ORGANIZ ATION 12/07/2022 [facility] DATE CREATED AUTHOR AUTHOR'S ORGANIZ ATION 04/03/2024 [facility] REASON FOR VISIT (unrecogniz ed section and content) [facility] resultsflu/pneum o Care Teams (unrecognized sec tion and content) Team Status: Active Member Role Status Dates Rachael Guerrero APRN ACTUARIAL ANALYST-C Primary Care Provider Active Team Status: Inactive Member Role Status Dates Rachael Guerrero APRN ACTUARIAL ANALYST-C Primary Care Provider, Attending Provider Active Start: March 20, 2024 End: March 20, 2024 Goals (unrecognized section and content) Goals may be documented in a n alternate section FOR RECORDS PERTAINING TO PATIENTS WHO ARE OR HAVE BEEN ENROLLED IN A CHEMICAL DEPENDENCY/SUBSTANCEABUSE PROGRAM, SOME INFORMATION MAY BE OMITTED. This clinical summary was aggregated from multiple sources. Caution should be exercised in using it in the provision of clinical care. This summary normalizes information from multiple sources, and as a consequence, information in this document may materially change the coding, format and clinical context of patient data. In addition, data may be omitted in some cases. CLINICAL DECISIONS SHOULD BE BASED ON THE PRIMARY CLINICAL RECORDS. [employer] provides no warranty or guarantee of the accuracy or completeness of information in this document.
[2024-06-30 08:31] LABS: Basophils Absolute Auto 0.1 10^3/uL (0.0-0.1); Basophils Percent Auto 0.5 % (0.2-2.0); Eosinophils Absolute Auto 0.2 10^3/uL (0.0-0.7); Eosinophils Percent Auto 1.6 % (0.9-7.0); Hematocrit 47.4 % (42.0-54.0); Hemoglobin 14.9 g/dL (14.0-18.0); Immature Granulocytes Abs Auto 0.09 10^3/uL (0.00-0.03); Lymphocytes Absolute Auto 1.9 10^3/uL (1.2-3.8); Lymphocytes Percent Auto 20.1 % (20.5-60.0); Mean Corpuscular HGB Conc 31.4 g/dL (29.9-35.2); Mean Corpuscular Hemoglobin 27.1 pg (25.9-34.0); Mean Corpuscular Volume 86.2 fL (80.0-94.0); Mean Platelet Volume 10.2 fL (9.5-13.5); Monocytes Absolute Auto 0.7 10^3/uL (0.3-0.8); Neutrophils Absolute Auto 6.3 10^3/uL (1.4-6.5); Neutrophils Percent Auto 68.8 % (43.0-75.0); Platelet Count 258 10^3/uL (150-450); Red Cell Distribution Width 14.1 % (11.0-15.0); White Blood Count 9.2 10^3/uL (4.0-11.0)
[2024-06-30 09:42] LABS: Alanine Aminotransferase 31 U/L (16-63); Albumin Globulin Ratio 0.9; Albumin Level 3.4 g/dL (3.4-5.0); Alkaline Phosphatase 124 U/L (46-116); Anion Gap 12.8; Aspartate Amino Transferase 26 U/L (15-37); BUN Creatinine Ratio 13.9; Bilirubin Total 1.1 mg/dL (0.2-1.0); Calcium 9.3 mg/dL (8.5-10.1); Carbon Dioxide 28.5 mmol/L (21.0-32.0); Chloride 103 mmol/L (98-107); Chol HDL Ratio 2.6; Cholesterol 105 mg/dL (<=200); Estimated GFR (African America >60 (>=60 mL/min/1.73m^2); Estimated GFR (Non-African Ame >60 (>=60 mL/min/1.73m^2); Globulin 3.9 g/dL; Glucose 110 mg/dL (74-106); HDL Cholesterol 40 mg/dL (40-60); Potassium 4.3 mmol/L (3.5-5.1); Sodium 140 mmol/L (136-145); Total Protein 7.3 g/dL (6.4-8.2); Triglycerides 95 mg/dL (<=150)
[2024-06-30 09:52] LABS: Prostate Specific Antigen Scrn 2.13 ng/mL (<=4.00)
== END 2024-06-30 08:01 | disposition home or self-care (01) ==
LOC: LAB 08:02
PROVIDERS: PCP Nurse Practitioner Family; Visit Provider Nurse Practitioner Family
DX: E78.00 Pure hypercholesterolemia, unspecified (principal); I10 Essential (primary) hypertension; Z12.5 Encounter for screening for malignant neoplasm of prostate
CPT/HCPCS: 36415; 80053; 80061; 85025; G0103

== ENCOUNTER 2024-07-02 00:51 | Outpatient (RCR) | payer MEDICARE, SELFPAY | END 2024-07-31 15:18 | disposition home or self-care (01) | LOC: MM 00:51 | PROVIDERS: PCP Nurse Practitioner Family; Visit Provider Internal Medicine | DX: Z51.81 Encounter for therapeutic drug level monitoring (principal); Z79.01 Long term (current) use of anticoagulants; I48.91 Unspecified atrial fibrillation | CPT/HCPCS: 85610; G0463 ==

== ENCOUNTER 2024-08-03 02:18 | Outpatient (RCR) | payer MEDICARE, SELFPAY | END 2024-08-28 13:14 | disposition home or self-care (01) | LOC: MM 02:18 | PROVIDERS: PCP Nurse Practitioner Family; Visit Provider Internal Medicine | DX: Z51.81 Encounter for therapeutic drug level monitoring (principal); Z79.01 Long term (current) use of anticoagulants; I48.91 Unspecified atrial fibrillation ==

== ENCOUNTER 2024-08-30 07:51 | Outpatient (RCR) | payer MEDICARE, SELFPAY | END 2024-09-25 13:25 | disposition home or self-care (01) | LOC: MM 07:51 | PROVIDERS: PCP Nurse Practitioner Family; Visit Provider Internal Medicine | DX: Z51.81 Encounter for therapeutic drug level monitoring (principal); Z79.01 Long term (current) use of anticoagulants; I48.91 Unspecified atrial fibrillation | CPT/HCPCS: 85610; G0463 ==

== ENCOUNTER 2024-09-29 04:02 | Outpatient (RCR) | payer MEDICARE, SELFPAY | END 2024-10-28 15:10 | disposition home or self-care (01) | LOC: MM 04:02 | PROVIDERS: PCP Nurse Practitioner Family; Visit Provider Internal Medicine | DX: Z51.81 Encounter for therapeutic drug level monitoring (principal); Z79.01 Long term (current) use of anticoagulants; I48.91 Unspecified atrial fibrillation | CPT/HCPCS: 85610; G0463 ==

== ENCOUNTER 2024-10-29 04:36 | Outpatient (RCR) | payer MEDICARE, SELFPAY | END 2024-11-28 07:19 | disposition home or self-care (01) | LOC: MM 04:36 | PROVIDERS: PCP Nurse Practitioner Family; Visit Provider Internal Medicine | DX: Z51.81 Encounter for therapeutic drug level monitoring (principal); Z79.01 Long term (current) use of anticoagulants; I48.91 Unspecified atrial fibrillation | CPT/HCPCS: 85610; G0463 ==

== ENCOUNTER 2024-11-29 08:24 | Outpatient (RCR) | payer MEDICARE, SELFPAY | END 2024-12-24 15:08 | disposition home or self-care (01) | LOC: MM 08:24 | PROVIDERS: PCP Nurse Practitioner Family; Visit Provider Internal Medicine | DX: Z51.81 Encounter for therapeutic drug level monitoring (principal); Z79.1 Long term (current) use of non-steroidal anti-inflammatories (NSAID); I48.91 Unspecified atrial fibrillation ==

== ENCOUNTER 2024-12-29 02:47 | Outpatient (RCR) | payer MEDICARE, SELFPAY | END 2025-01-28 17:00 | disposition home or self-care (01) | LOC: MM 02:47 | PROVIDERS: PCP Nurse Practitioner Family; Visit Provider Internal Medicine | DX: Z51.81 Encounter for therapeutic drug level monitoring (principal); Z79.01 Long term (current) use of anticoagulants; I48.91 Unspecified atrial fibrillation | CPT/HCPCS: 85610; G0463 ==

== ENCOUNTER 2025-01-29 02:32 | Outpatient (RCR) | payer MEDICARE, SELFPAY | END 2025-02-25 12:50 | disposition home or self-care (01) | LOC: MM 02:32 | PROVIDERS: PCP Nurse Practitioner Family; Visit Provider Internal Medicine | DX: Z51.81 Encounter for therapeutic drug level monitoring (principal); Z79.01 Long term (current) use of anticoagulants; I48.91 Unspecified atrial fibrillation ==

== ENCOUNTER 2025-03-01 01:20 | Outpatient (RCR) | payer MEDICARE, SELFPAY | END 2025-03-30 15:39 | disposition home or self-care (01) | LOC: MM 01:20 | PROVIDERS: PCP Nurse Practitioner Family; Visit Provider Internal Medicine | DX: Z51.81 Encounter for therapeutic drug level monitoring (principal); Z79.01 Long term (current) use of anticoagulants; I48.91 Unspecified atrial fibrillation | CPT/HCPCS: 85610; G0463 ==

== ENCOUNTER 2025-03-31 04:27 | Outpatient (RCR) | payer MEDICARE, SELFPAY | END 2025-04-30 23:59 | disposition home or self-care (01) | LOC: MM 04:27 | PROVIDERS: PCP Nurse Practitioner Family; Visit Provider Internal Medicine | DX: I48.91 Unspecified atrial fibrillation (principal) | CPT/HCPCS: 85610; G0463 ==

== ENCOUNTER 2025-05-01 | Outpatient (RCR) | payer MEDICARE, SELFPAY | END 2025-05-30 23:59 | disposition home or self-care (01) | LOC: MM | PROVIDERS: PCP Nurse Practitioner Family; Visit Provider Internal Medicine | DX: Z51.81 Encounter for therapeutic drug level monitoring (principal); Z79.01 Long term (current) use of anticoagulants; I48.91 Unspecified atrial fibrillation ==

== ENCOUNTER 2025-05-31 11:02 | Outpatient (RCR) | payer MEDICARE, SELFPAY | END 2025-06-30 13:09 | disposition home or self-care (01) | LOC: MM 11:02 | PROVIDERS: PCP Nurse Practitioner Family; Visit Provider Internal Medicine | DX: Z51.81 Encounter for therapeutic drug level monitoring (principal); Z79.01 Long term (current) use of anticoagulants; I48.91 Unspecified atrial fibrillation ==